=== PATIENT | male | born 1990 | race Caucasian/White ===

== ENCOUNTER 2024-08-17 06:31 | Outpatient (REF) | payer BC, SELFPAY ==
--- NOTE | ~2024-08-17 | US_ITS ---
CLINICAL HISTORY: Neoplasm of left kidney US Renal Comparison: None Findings: Right kidney normal size and echotexture, 10.4 cm in length. Left kidney normal size and echotexture, 11.4 cm length. 11 mm left interpolar/superior pole renal cyst. No collecting system dilatation of either kidney. Normal color Doppler. Urinary bladder is unremarkable. Prevoid volume 254 mL. Postvoid volume 18 mL. Bilateral ureteral jets are visualized. Mildly enlarged prostate. IMPRESSION: 1. Normal kidneys. 2. Mild prostate enlargement. 3. Left renal cyst. This document has been electronically signed by: Pineda Maddox MD on 08/17/2024 14:30:34
--- OUTSIDE RECORDS SUMMARY | 2024-08-17 06:35 | XMS_ITS | Clinical Summary ---
Author Organization [facility] Address [facility] [address], [address] [place] [address] Care Team Providers Care Financial Writer Name Role Phone Constanza Alarcon NP Primary Care Provider [phone] Source Comments [facility] (Labor and Delivery) documents do not appear in the Encounter Summary [facility] Allergies Active Allergy Reactions Criticality Noted Date Comments Aspirin Other (See Comments) 12/31/2016 ulcers Ibuprofen Other (See Comments) 12/31/2016 ulcers Infliximab Other (See Comments) 12/31/2016 Joints flared up Medications * Please verify current medications with patient. ADALIMUMAB (HUMIRA SUBCUTANEOUS) Active DICYCLOMINE HCL (DICYCLOMINE INTRAMUSCULA) Active IRON POLYSACCHARIDE COMPLEX (NU-IRON ORAL) Active Social History Tobacco Use Types Packs/Day Years Used Date Smoking Tobacco: Never Alcohol Use Standard Drinks/Week Comments Yes 5 (1 standard drink = 0.6 oz pur e alcohol) Sex and Gender Information Value Date Recorded Sex Assigned at Not on file Legal Sex Male 7:20 AM MDT Gender Identity Not on file Sexual Orientation Not on file Last Filed Vital Signs Vital Sign Reading Time Taken Comments Blood Pressure 110/56 12/31/2016 4:36 PM MDT Pulse 71 12/31/2016 4:36 PM MDT Temperature 37.1 ??C (98.8 ??F) 12/31/2016 4:21 PM MD T Respiratory Rate 17 12/31/2016 4:36 PM MDT Oxygen Saturation 95% 12/31/2016 4:36 PM MDT Inhaled Oxygen Concentration - - Weight 73.9 kg (163 lb) 12/31/2016 2:55 PM MDT Height 175.3 cm (5' 9 ) 12/31/2016 2:55 PM MDT Body Mass Index 24.07 12/31/2016 2:55 PM MDT Plan of Treatment Health Maintenance Due Date Last Done Comments HIV Screening 1989 Hepatitis C Screening 1989 Lipid Panel 1989 Hepatitis B Vaccine (1 of 3 - 19+ 3-dose series) 2008 Tetanus Diphtheria and Pertu ssis Vaccines (1 - Tdap) 2008 COVID-19 Vaccine (1 - 2023-2 5 season) 2024 Influenza Vaccine (#1) 2024 Zoster Vaccines (1 of 2) 2039 RSV Vaccines (1 - 1-dose 75+ series) 2064 HPV Vaccine Aged Out No longer eligi ble based on patient's age to complete this topic Hepatitis A Vaccine Aged Out No longe r eligible based on patient's age to complete this topic Hib Vaccine Aged Out No longer eligi ble based on patient's age to complete this topic IPV Vaccine Aged Out No longer eligi ble based on patient's age to complete this topic Meningococcal Vaccine (MCV4) Aged Out No longer eligible based on patient's age to complete this topic Pneumococcal Vaccine: Pediat rics (0 to 5 Years) and At-Risk Patients (6 to 64 Years) Aged Out No longer eligible b ased on patient's age to complete this topic Rotavirus Vaccine Aged Out No longer eligible based on patient's age to complete this topic Insurance [employer] Care Teams Financial Writer Relationship Specialty Start Date End Date Constanza Alarcon NP [address] [facility] [place] [address] [facility] - General 12/24/16
--- OUTSIDE RECORDS SUMMARY | 2024-08-17 06:35 | XMS_ITS ---
Author Name Auto Generated Organization [employer] Support Name Relationship Address Phone EDDA D[place] [address] [phone] USAMA PANDA Next of Kin Unknown [phone] [place] [address] [phone] TIM, [place] [address] [phone] USAMA PANDA Next of Kin Unknown Unavailable TIM, [place] [address] [phone] TIM, [place] [address] [phone] USAMA PANDA Next of Kin Unknown Unavailable TIMEDDA [place] [address] [phone] TIM, [place] [address] [phone] USAMA PANDA Next of Kin Unknown Unavailable TIM, [place] [address] [phone] TIM, [place] [address] [phone] UASMA PANDA Next of Kin Unknown Unavailable TIM, [place] [address] [phone] TIM, [place] [address] [phone] USAMA PANDA Next of Kin Unknown Unavailable TIM, [place] [address] [phone] TIM, [place] [address] [phone] USAMA PANDA Next of Kin Unknown Unavailable TIM, [place] [address] [phone] [place] [address] [phone] PANDAUSAMA REVELES Next of Kin Unknown Unavailable TIM, [place] [address] [phone] TIM, [place] [address] [phone] [place], [place] [address] [phone] TIM, [place] [address] [phone] [place], [place] [address] [phone] TIM, [place] [address] [phone] [place], [place] [address] [phone] [place], [place] [address] [phone] TIM, [place] [address] [phone] [place], [place] [address] [phone] TIM, [place] [address] [phone] [place], [place] [address] [phone] [place], [place] [address] [phone] TIM, [place] [address] [phone] Care Team Providers Care Web Services Professional Name Role Phone MD PATRICK MYERS Attending Physician Unavailree BLANK, OTILIO Spears Unavailable Unavailable JONNA PRATER Primary Care Physician Unav ailable MD PATRICK MYERS Unavailable Unavailable JONNA PRATER Primary Care Physician Unav ailMD PATRICK Dodson Unavailable Unavailable JONNA PRATER Primary Care Physician Unav ailable JOE CORDOBA Attending Physician Unavailable JONNA PRATER Primary Care Physician Unav ailable JOE CORDOBA Unavailable Unavailable JONNA PRATER Primary Care Physician Unav ailable JOE CORDOBA Unavailable Unavailable JONNA PRATER Primary Care Physician Unav ailable JOE CORDOBA Attending Physician Unavailable SELF Unavailable Unavailable JONNA PRATER Primary Care Physician Unav ailable JOE CORDOBA Unavailable Unavailable JONNA PRATER Primary Care Physician Unav ailable MD RAE CHAU Admitting Physician Unavailable MD RAE CHAU Attending Physician Unavailable OTILIO BLANK Unavailable Unavailable JONNA PRATER Primary Care Physician Unav ailable SOL ROMO Attending Physician Unavailable OTILIO BLANK Unavailable Unavailable JONNA PRATER Primary Care Physician Unav ailable OTILIO BLANK Unavailable Unavailable JONNA PRATER Primary Care Physician Unav ailable NADIRA GARCIAS Attending Physician Unavailable SELF Unavailable Unavailable JONNA PRATER Primary Care Physician Unav ailable JOE CORDOBA Attending Physician Unavailable SELF Unavailable Unavailable JONNA PRATER Primary Care Physician Unav ailable JOE CORDOBA Unavailable Unavailable JONNA PRATER Primary Care Physician Unav ailable TALIA GUERRERO Attending Physician Unavaila ble ASKED, DO NOT NOTIFY Primary Care Physician Unav ailable PROBLEMS DATE TYPE CONDITION / CODE ATTENDING STATUS [facility] 02/17/2024 Admitting Diagnosis Acute upper respiratory infection, unspecified / J06.9(ICD-10) TALIA GUERRERO Active [facility] 01/30/2024 Admitting Diagnosis Crohn's disease, unspecified, with other complication / K50.918(ICD-10) JOE CORDOBA Active [facility] 01/30/2024 Admitting Diagnosis Monoclonal gammopathy / D47.2(ICD-10) JOE CORDOBA Active [facility] 01/30/2024 Admitting Diagnosis Disorder of the autonomic nervous system, unspecified / G90.9(ICD-10) JOE CORDOBA Active [facility] 01/16/2024 Admitting Diagnosis Unspecified Eustachian tube disorder, left ear / H69.92(ICD-10) NADIRA GARCIAS Active [facility] 12/26/2023 Admitting Diagnosis Other specified disorders of kidney and ureter / N28.89(ICD-10) SOL ROMO Active [facility] 11/04/2023 Admitting Diagnosis Chronic kidney disease, unspecified / N18.9(ICD-10) MD RAE CHAU Active [facility] 11/04/2023 Admitting Diagnosis Chronic kidney disease, stage 2 (mild) / N18.2(ICD-10) MD RAE CHAU Active [facility] 11/03/2023 Admitting Diagnosis Diplopia / H53.2(ICD-10) CORDOBAJOE Active [facility] 11/03/2023 Admitting Diagnosis Sleep apnea, unspecified / G47.30(ICD-10) JOE CORDOBA Active [facility] 09/26/2023 Admitting Diagnosis Left upper quadrant abdominal swelling, mass and lump / R19.02(ICD-10) NA [facility] 09/17/2023 Admitting Diagnosis Lumbago with sciatica, left side / M54.42(ICD-10) JOE CORDOBA Active [facility] 09/17/2023 Admitting Diagnosis Lumbago with sciatica, right side / M54.41(ICD-10) JOE CORDOBA Active [facility] 09/17/2023 Admitting Diagnosis Familial dysautonomia (danny-day) / G90.1(ICD-10) JOE CORDOBA Active [facility] 09/10/2023 Admitting Diagnosis Other hydrocele / N43.2(ICD-10) MD PATRICK MYERS Active [facility] 09/10/2023 Admitting Diagnosis Right testicular pain / N50.811(ICD-10) MD PATRICK MYERS Active [facility] 09/10/2023 Admitting Diagnosis Left testicular pain / N50.812(ICD-10) MD PATRICK MYERS Active [facility] RESULTS PROGRESS NOTE Observed: 02/17/2024 6:50 PM Status: COMPLETED Source: [facility] [id number] TimJuan Pete [facility] 1990 M PROGRESS NOTE Observed: 02/17/2024 6:50 PM Status: COMPLETED Source: [facility] Assessment and Plan: Diagnosis ICD-10-CM Associated Orders 1. Upper respiratory tract infection, unspecified type J06.9 Patient seen today with couple days of URI symptoms. He is concern for sinusitis though history is more suggestive of a viral etiology. Vitals and physical exam are unremarkable. We discussed rest, duration, OTC meds like Mucinex and Sudafed to help with symptoms. Patient reports they are moving from [place] to [place] and will be driving there tomorrow and losing health insurance. I agreed to send a prescription for Augmentin as patient agreed to only take this if sinus pressure, congestion worsen, last beyond 7 days and are unaffected by OTC meds. He is discharged in good condition. Medications Placed This Encounter Medications amoxicillin-clavulanate (AUGMENTIN) 875-125 mg per tablet Subjective: Chief Complaint Patient presents with Sinus Problem Pt c/o headache, st due to post nasal drip, sinus pressure x 2 days. Tx none HPI Patient is a 33-year-old male in today with headache, sinus congestion and pressure along with sore throat with postnasal drip for the last couple days. Denies fevers, chills, body aches or lethargy. No cough, chest tightness or GI symptoms. Patient is accompanied by his partner who also has similar symptoms. They note likely catching this from a friend they went hiking with recently who is also sick. Objective: Vitals: 02/17/241917 Temp: 36.6 ?C (97.8 ?F) BP: 119/84 Pulse: 69 Heart Rate Source: Pulse Oximeter Resp: 16 02/17/2024 7:18 PM 01/30/2024 7:56 AM 01/16/2024 11:39 AM Last 3 Pulse Ox SpO2 96 percent 98 percent 98 percent SpO2- Pt at Rest or with Activity Rest Rest Rest No results found. Physical Exam Vitals reviewed. Constitutional: Appearance: Normal appearance. HENT: Head: Normocephalic and atraumatic. Right Ear: Tympanic membrane and ear canal normal. Left Ear: Tympanic membrane and ear canal normal. Mouth/Throat: Mouth: Mucous membranes are moist. Pharynx: Oropharynx is clear. Eyes: Extraocular Movements: Extraocular movements intact. Cardiovascular: Rate and Rhythm: Normal rate and regular rhythm. Pulmonary: Effort: Pulmonary effort is normal. Breath sounds: Normal breath sounds. Musculoskeletal: Cervical back: Neck supple. Lymphadenopathy: Cervical: No cervical adenopathy. Neurological: Mental Status: He is alert. Procedures Data: No results found for this visit on 02/17/24 (from the past 48 hour(s)). No results found. Reviewed: KVNG Dugan PROGRESS NOTE Observed: 02/17/2024 6:50 PM Status: COMPLETED Source: [facility] RESS NOTE Observed: 02/07/2024 11:13 AM Status: COMPLETED Source: [facility] [id number] Juan Dumont Pete eph 1990 M PROGRESS NOTE Observed: 02/07/2024 11:13 AM Status: COMPLETED Source: [facility] 02/06 Sent RR - Lialda PROGRESS NOTE Observed: 02/07/2024 11:13 AM Status: COMPLETED Source: [facility] RESS NOTE Observed: 02/07/2024 11:13 AM Status: COMPLETED Source: [facility] [id number] Juan Dumont Pete eph 1990 M PROGRESS NOTE Observed: 02/07/2024 11:13 AM Status: COMPLETED Source: [facility] 02/10-RR for Lialda Denied n ow filling at [facility] PROGRESS NOTE Observed: 02/07/2024 11:13 AM Status: COMPLETED Source: [facility] HROCYTE SEDIMENTATION RATE Collected: 01/30/2024 8:41 AM Status: F Source: [facility] TYPE CODE TESTS RESULT OUT OF RANGE REFERENCE UNITS LAB [id number] ERYTHROCYTE SEDIMENTATION RATE 4 0-10 mm/hr Result Comment: Ordering Pro vider: JOE CORDOBA C REACTIVE PROTEIN Collected: 8:41 AM Status: F Source: [facility] TYPE CODE TESTS RESULT OUT OF RANGE REFERENCE UNITS LAB [id number] CRP <5.0 <10.0 mg/L Result Comment: Ordering Pro vider: JOE CORDOBA PROTEIN TOTAL SPEP Collected: 01/30/2024 8:41 AM Sta tus: F Source: [facility] TYPE CODE TESTS RESULT OUT OF RANGE REFERENCE UNITS LAB [id number] SPEP PROTEIN TOTAL SERUM 7.1 6.4-8.9 g/dL Result Comment: Ordering Pro vider: JOE CORDOBA Performed By: #### [id number] # ### [place] [address] [place] [address] CLIA# [id number] [id number] COMPLEMENT Collected: 01/30/2024 8:41 AM Status: F Source: [facility] TYPE CODE TESTS RESULT OUT OF RANGE REFERENCE UNITS LAB [id number] C3 COMPLEMENT 112 87-200 mg/dL Result Comment: Ordering Pro vider: JOE CORDOBA Performed By: #### [id number], L [id number] #### [place] [address] CLIA# [id number] [id number] COMPLEMENT Collected: 01/30/2024 8:41 AM Status: F Source: [facility] TYPE CODE TESTS RESULT OUT OF RANGE REFERENCE UNITS LAB [id number] C4 COMPLEMENT 20.0 19.0-52.0 mg/dL Result Comment: Ordering Pro vider: JOE CORDOBA Performed By: #### [id number], L [id number] #### [place] [address] CLIA# [id number] KAPPA/LAMBDA FREE LIGHT SCOTT NS WITH RATIO, SERUM Collected: 01/30/2024 8:41 AM Status: F Source: [facility] TYPE CODE TESTS RESULT OUT OF RANGE REFERENCE UNITS LAB [id number] KAPPA FREE LIGHT CHAINS 1.89 0.33-1.94 mg/dL LAB [id number] LAMBDA FREE LIGHT CHAINS 1.65 0.57-2.63 mg/dL LAB [id number] KAPPA/LAMBDA FLC RATIO 1.15 0.26-1.65 LAB [id number] KAPPA-LAMBDA FLC DIFFERENCE 0.24 mg/dL Result Comment: Testing perf ormed with The Binding Site [employer] assay. Ordering Provider: JOE CORDOBA Performed By: #### [id number], [id number], [id number] #### [place] [address] CLIA# [id number] SPEP W REFLEX NIKKI PERFORM Collected: 01/30/2024 8:41 AM Status: F Source: [facility] TYPE CODE TESTS RESULT OUT OF RANGE REFERENCE UNITS LAB [id number] SPEP MONOCLONAL PROTEIN QUAL None Detected None Detected LAB [id number] SPEP MONOCLONAL PROTEIN LAB [id number] SPEP PATTERN INTERPRETATION See Comment Result Comment: Nonspecific gammaglobulin asymmetry was noted, but a definite M-protein wasn't identified by the immunofixation. The increased gamma fraction suggests chronic inflammation. Rarely, that can obscure a paraprotein. Reevaluation in 6-12 months could be considered if clinical suspicion persists. The kappa/lambda free light chain ratio in a recent serum sample was within the reference interval. Interpreted by Mackenzie Ford D.O. (ext. [phone]). LAB [id number] SPEP ALBUMIN FRACTION C 3.9 3.5-4.8 g/dL LAB [id number] SPEP ALPHA 1 PROTEIN FRACTION C 0.20 0.14-0.34 g/dL LAB [id number] SPEP ALPHA 2 PROTEIN FRACTION C 0.7 0.5-1.0 g/dL LAB [id number] SPEP BETA PROTEI N FRACTION C 0.9 0.8-1.5 g/dL LAB [id number] SPEP GAMMA PROTEIN FRACTION C 1.5 High 0.4-1.4 g/dL Result Comment: Ordering Pro vider: JOE CORDOBA Performed By: #### [id number], [id number], [id number] #### [address] CLIA# [id number] LAB USE ONLY NIKKI SERUM Collected: 01/30/2024 8:41 AM Status: F Source: [facility] REPOSITORY TYPE CODE TESTS RESULT OUT OF RANGE REFERENCE UNITS LAB [id number] S NIKKI IGG MONOCLONAL None Detected None Detected LAB [id number] S NIKKI IGA MONOCLONAL None Detected None Detected LAB [id number] S NIKKI IGM MONOCLONAL None Detected None Detected LAB [id number] S NIKKI KAPPA MONOCLONAL None Detected None Detected LAB [id number] S NIKKI LAMBDA MONOCLONAL None Detected None Detected LAB [id number] S NIKKI INTERPRETATION See Comment Result Comment: An M-protein wasn't identified by NIKKI, but background proteins that may obscure a faint monoclonal protein are noted. Refer to the sample's concurrent protein electrophoresis interpretation for complete details. Interpreted by Mackenzie Ford D.O. (ext. [phone]). Ordering Provider: JOE CORDOBA Performed By: #### [id number], [id number], [id number] #### [place], [place] [address] [facility] CLIA# [id number] PROGRESS NOTE Observed: 01/30/2024 8:00 AM Status: COMPLETED Source: [facility] REPOSITORY [id number] Juan Dumont [facility] 1990 M PROGRESS NOTE Observed: 01/30/2024 8:00 AM Status: COMPLETED Source: [facility] ASSESSMENT AND PLAN: ICD-10-CM 1. Crohn's disease with other complication, unspecified gastrointestinal tract location (HC CODE) K50.918 Erythrocyte Sedimentation Rate C-Reactive Protein C3 Complement C4 Complement 2. MGUS (monoclonal gammopathy of unknown significance) D47.2 Protein Serum Electrophoresis w/Reflex NIKKI [place]/Lambda Free Light Chains with Ratio, Serum 3. Autonomic dysfunction G90.9 Juan Dumont is a 33 y.o. man presents with autonomic dysfunction and double vision after viral infection in 2020, fluctuating leg paresthesia with abdominal discomfort. Exam showed skin discoloration in hands and feet, and was otherwise unremarkable. Right eye discomfort when looking up. Could be related to underlying autonomic dysfunction, contributing to migrainous phenomena causing right eye heaviness. Primary eye issues such as dry eye or uveitis could be other consideration. No clear weakness with upward gaze at today's visit. Antibodies for myasthenia gravis were unremarkable. No neck pain make dissection unlikely. Reassuringly symptoms improved over time. Dysautonomia in 2020. Regarding his symptoms in 2020, mycoplasma is known to cause post-infectious (immune-mediated) issues: Skin biopsy did confirm small fiber neuropathy, making small autonomic neuropathy the most likely cause for many of his symptoms. It remains possible that he might had small fiber neuropathy for a while, but it did not become symptomatic until he had systemic illness, contributing to hypoxemia and poor sleep. The elevated early Sjogren antibodies, abnormal SPEP as well as AChR ganglionic antibodies, makes immune mediated process initially a possibility contributing to the autonomic neuropathy. Extensive malignancy work-up (CT chest/abd/pelvis x2, US testicular) ruled out paraneoplastic process contributing to his symptoms MRI brain and C-spine have ruled out cervical lesion or intracranial lesions contributing to his symptoms. EMG has ruled out large fiber neuropathy. Skin discoloration in the hands and feet would also be concerning for underlying generalized dysautonomia. Fluctuates depending on the day. B12 deficiency could be another concern given previously low titer. S/p supplementation. Copper level mikael previously. Reassuringly, his symptoms in general has been stable over time, argue against progressive autonomic neuropathy. Normalization of AChR Ganglionic antibody also supports this concern. He does have fluctuating light chain level depending on clinic visit. Significance is unclear, but does need to be followed over time. Tinnitus with episodic double vision and headache. LP did not show elevated intracranial pressure, and MRI scan did not show any finding that would be consistent with elevated intracranial pressure. MRV ruled out venous sinus thrombosis. Sleep study did confirm sleep apnea, which could be contributing to tinnitus as well as headache. he has not followed up with providers regarding this for a while. Joint swelling, abdominal/pelvic discomfort and lower extremity paresthesia. Could be associated with other autoimmune disorder. In general stable, but continued to fluctuate depending on the day. We discussed the following during today's telehealth visit: -likely cause of his symptoms were again discussed. -will recheck inflammatory markers and SPEP at today's visit. -did encourage patient to follow up with eye provider regarding the double vision. -encouraged patient to consider treatment of sleep apnea going forward, given it would be causing some of his symptoms. -Follow up as needed, as he is moving to [place]. He can contact us on my health connection if questions or issues arise . HISTORY: Chief Compliant: Juan Dumont is a 30 y.o. man who presents to neurology telehealth visit for evaluation of paresthesia, tinnitus, positional lightheadedness, headache, double vision. Last clinic visit was 11/03/2023. Update since last clinic visit: Double vision and eye discomfort: improved over time. Only noticed it when he is very fatigued. He is yet to be seen by an eye doctor. Paresthesia, diffuse joint pain and heart rate/blood pressure variation, tinnitus: symptoms improved by minimize triggers. Sleep apnea treatment: He has not followed up with other provider regarding this. He did have kidney dysfunction, which workup was negative. 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 He does recall when he had initial symptoms, he was not sleeping well. Summary from prior clinic visits: Doing well before 06/2020. Had upper respiratory tract symptoms during trip to see family. since then constellation of symptoms He has developed severe hypotension after eating. He has not passed out from these lightheadedness. He has developed severe joint pain, as well as significant paresthesia in his hands and feet. Worsens with antibiotics use. He has developed severe tinnitus that is nearly continuous and out of both ears, with head pressure sensation. Low grade temp with chills. Fatigue, brain fog, double vision when tired, vertiginous sensation, mild postural tremor. He otherwise reports no weakness, no change of balance, no dry eyes or dry mouth, no severe urinary and bowel dysfunction. Repeat Lyme FRANCK was negative. Mycoplasma IgM did return positive subsequently, and he received 10 days of doxycycline and 7 days of amoxicillin. Repeat Mycoplasma testing in October was negative Extensive serum testing unrevealing, except elevated early Sjogren antibody titer, AChR Ganglionic antibody mildly elevated, positive skin punch biopsy. Evaluation at neuro ID clinic unremarkable. EMG unremarkable. Malignancy screening with CT chest/abd/pelvis x2 and testicular US are all unremarkable. COVID-19 transiently worsened his symptoms. History of Crohn's disease. He was on Humira since 2011. He was recently taken off Humira and started on mesalamine before 2020. Symptom stabilize over time. Does have intermittent joint swelling. Also had more recent testicular pain, abdominal dull ache, as well as paresthesia down the legs. CURRENT MEDICATIONS: Current Outpatient Medications Medication Sig cyanocobalamin 1,[address] 1 tablet under the tongue daily for B12 deficiency. dicyclomine (BENTYL) 20 mg tablet Take 1 tablet by mouth 2 times daily for Irritable Bowel Syndrome. iron polysaccharide complex (FERREX 150 PO) LIALDA 1.2 gram EC tablet Take 4 tablets by mouth daily for Crohn's disease. No current facility-administered medications for this visit. ALLERGIES: Aspirin, Ibuprofen, Infliximab, and Azithromycin EXAM: Vital Signs: Visit Vitals BP 116/78 (BP Location: , Patient Position: Sitting) Pulse 60 Temp 36.6 ?C (97.9 ?F) (Temporal) Resp 16 Ht 1.753 m (5' 9 ) Wt 79.8 kg (176 lb) SpO2 98 percent BMI 25.99 kg/m? General Examination General: No apparent distress. Respiratory: Normal respiratory effort. Skin: No rashes noted Extremities: Foot is cool to touch. Discoloration in the fingers and toes. Normal radial pulses. Neurological Examination MENTAL STATUS: Alert, attentive and oriented to person, place and time; ability to follow commands intact. LANGUAGE: Language is coherent and fluent without aphasia. CRANIAL NERVES: II: Visual [place] full to confrontation. Pupils equal, round, reactive to light. III, IV, : Extraocular eye movements full; no nystagmus. no ptosis and no weakness noted, with persisted upward gaze, V: Facial sensation: Normal light touch in all three divisions VII: Facial movements: eyelid closure, puffing the cheeks and smile normal bilaterally VIII: Hearing is intact to normal conversation. IX, X: Soft palate elevation normal in midline. No dysarthria. XI: Normal sternocleidomastoid and trapezius strength and bulk XII: Tongue without atrophy or fasciculations; tongue movement normal MOTOR STRENGTH (MRC 0-5): Normal bulk and tone in the bilateral upper and lower extremities. No cramps, fasciculations or contractures. RIGHT LEFT Neck flexion 5 Neck extension 5 UPPER EXTREMITY Shoulder ABD 5 5 Elbow extension 5 5 Elbow flexion 5 5 Wrist extension 5 5 Wrist flexion 5 5 Finger ABD 5 5 Finger extension 5 5 Finger flexion 5 5 Thumb ABD 5 5 LOWER EXTREMITY Hip flexion 5 5 Knee extension 5 5 Knee flexion 5 5 Ankle Dorsiflexion 5 5 Ankle Plantarflexion 5 5 Toe Flexion 5 5 Toe Extension 5 5 REFLEXES: RIGHT LEFT Biceps +2 +2 Triceps +2 +2 Brachioradialis +2 +2 Patellar +2 brisk +2 brisk Achilles +2 +2 Plantar response downgoing downgoing Santos's absent absent SENSORY: Pinprick/temperature: intact Vibration: intact Light touch: intact Romberg: intact COORDINATION: Finger to nose testing is accurate without dysmetria. No tremor or abnormal movements noted. GAIT: Casual gait is normal. Able to walk on toes and heels. Normal tandem walk. DATA: Laboratory, radiographic and medical studies were independently reviewed and pertinent for: 05/08/2023: Vitamin D 49; B12: >1000; CRP < 5; BMP: 140/4.7/105/22/28/1.37/87; AST: 32; ALT: 37; CBC: 9/17.3/50/361; 06/19/2022: SPEP unremarkable. Ferritin 258; iron panel negative; BMP: 138/4/107/22/24/90; paraneoplastic panel (not including AChR ganglionic antibody titer) negative; CRP <5; ESR 2; CCP < 20; RF < 10; [place] light chain 2.05 (normal < 1.94); Copper level normal; 02/08/2022: Vitamin B12: 286; Vitamin D 45; CRP 9.2; BMP: 141/3.6/105/27/28/1.04/80; AST: 16; ALT: 18; CBC: 10.3/16.7/49.1/306; 05/24/2021: early sjogren panel negative; [place] light chain 2.12, AChR gnaglionic antibody 0.05; 04/24/2021: CSF testing: OP 17; lyme PCR, oligoclonal band negative; protein 32; Glucose 65; Nucleated cell 2; RBC 0; VDRL non-reactive; 04/24/2021: TS-HDS and FGFR3 antibodies negative. ESR 2; CRP: 1.9; paraneoplastic antibody panel: AChR ganglionic neuronal antibody 0.04; 02/27/2021: Homocysteine, vitamin E, MMA, tick fever antibody, thyroid antibody, HIV, B6, B12 341, A1C 5.1; kelch-like protein 11 antibody negative; [place]: lambda ratio: [place] slightly elevated at 2.1; UPEP negative; early Sjogren antibody panel SP-1 IgG elevated at 29 (normal < 20); 12/25/2020: heavy metal negative; unremarkable SPEP, ANCA. 12/19/2020: Antihistone antibody negative; CRP 2.6; 11/10/2020: C3, C4 (slightly reduced at 11), Folate 17.6; B12: 508; mycoplasma IgG and IgM elevated; 07/27/2020: ARIANNA unremarkable. EMG/NCS 01/19/2021: This is a normal study. Specifically, there is no electrodiagnostic evidence for a large fiber polyneuropathy. Skin biopsy: positive for small fiber neuropathy from one site; Imaging studies were independently viewed and pertinent for: CT abdomen/pelvis with contrast: 09/26/2023: 1. No acute abnormality in the abdomen or pelvis. Density seen on prior x-ray appears to correlate to the region of the stomach likely representing ingested material. 2. Partially imaged hydroceles. X-ray L-spine: 09/18/2023: 1. No fracture or spondylolisthesis in the lumbar spine. 2. Density in the left upper quadrant was not noted on the recent CT scan. CT chest/abd/pelvis 08/14/2021: normal; MRV brain w AND w/o contrast: 05/10/2021: Normal MR venogram of the head; no evidence of dural venous sinus thrombosis. 01/05/2021: MRI C-spine w AND w/o contrast: No cord lesion, significant degeneration or abnormal enhancement. 02/14/2021: Ultrasound testicular: 1. No intratesticular mass lesion. 2. Moderate-sized right-sided hydrocele. CT chest/abd/pelvis with contrast 02/27/2021: 1. No lymphadenopathy or other evidence for malignancy. 2. Indeterminate density exophytic lesion extending off of the left kidney measuring up to 1.1 cm, likely representing a hemorrhagic/proteinaceous cyst. This lesion can likely be further characterized with ultrasound given location. Renal ultrasound 03/01/2021: 1. The left kidney lesion noted on the previous CT scan has low density in the CT scan are today's ultrasound it is anechoic. It is small in size and through-transmission/posterior acoustical enhancement are not optimally displayed, but the finding likely represents a simple cortical renal cyst. 2. Normal left kidney and normal bladder. I spent total of 40 minutes in reviewing record, preparing to see patient, independently interpreting results, counseling, discussion of treatment options, coordination care, documentation. Details outlined in assessment and plan. Thank you so much for this consultation and for allowing us to be involved in the care of Juan Dumont. If there are any further questions or concerns, please contact the [facility] at [phone] for assistance. Joe Cordoba Copy Coordinator of Neurology Pager: [phone] 01/30/2024 PROGRESS NOTE Observed: 01/30/2024 8:00 AM Status: COMPLETED Source: [facility] RESS NOTE Observed: 01/16/2024 11:40 AM Status: COMPLETED Source: [facility] [id number] Juan Dumont [facility] 1990 M PROGRESS NOTE Observed: 01/16/2024 11:40 AM Status: COMPLETED Source: [facility] Clinical Impression Diagnosis None Urgent Care Course/Discussion/Disposition No aom, aoe, cerumen impaction. Eustachian dysfunction. You have eustachian dysfunction caused by swelling of the eustachian tube due to allergies. There is no infection or ear wax. Pepcid (famotidine) as directed. Cetirizine once daily at bedtime. For ear and nasal congestion: Afrin nasal spray decongestant, twice daily for maximum 3 days, then must take 2-3 days off before resuming the Afrin to avoid nasal congestion. Pseudoephedrine as directed. For runny nose: Chlorpheniramine (at night, will make you drowsy). Cetirizine 10 mg at bedtime. Flonase/fluticasone as directed. Thank you for trusting me with your care. No results found for this visit on 01/16/24. No orders to display Discharge Orders (From admission, onward) None History Chief Complaint Patient presents with Ear Problem Pt is a 33 yo male with uri several weeks ago, sinusitis. When he was flying back about 1 week ago, he was having left ear plugging, pressed on his left ear, and wondered if he pushed wax into the canal. [place], had ear popping and clicking with altitude change. 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 Runs high (135/80) but is very low recently (105/60) Kidney cancer, primary, with metastasis from kidney to other site (HC CODE) October 2023 Neuromuscular disorder (HC CODE) June 2020 Neuropathy Confirmed in Feb 2021 small fiber neuropathy Ulcer since 1999 Crohns Prior to Admission medications Medication Sig Start Date End Date Taking? Authorizing Provider cholecalciferol, vitamin D3, (VITAMIN D3) 1,000 unit tablet Take 1 tablet by mouth. Faheem Ge MD cyanocobalamin 1,[address] 1 tablet under the tongue daily for B12 deficiency. 02/08/22 Gilson Sandy MD dicyclomine (BENTYL) 20 mg tablet Take 1 tablet by mouth 2 times daily for Irritable Bowel Syndrome. 11/19/23 Gilson Sandy MD efinaconazole (JUBLIA) 10 percent Roscoe Faheem Ge MD iron polysaccharide complex (FERREX 150 PO) Faheem Ge MD LIALDA 1.2 gram EC tablet Take 4 tablets by mouth daily for Crohn's disease. 11/19/23 Gilson Sandy MD MELATONIN PO Take by mouth as needed. Faheem Ge MD TACROlimus (PROTOPIC) 0.1 percent ointment APPLY TWICE A DAY TO AFFECTED AREAS FOR UP TO 8 WEEKS. Faheem Ge MD Allergies Allergen Reactions Aspirin BLEEDING and Other Reaction Other reaction(s): Adverse reaction, Other (See Comments) Stomach pain ulcers Due to crohn's ulcers Due to crohn's Ibuprofen BLEEDING and Other Reaction Other reaction(s): Adverse reaction, GI bleeding, Other (see comments), Other (See Comments) ulcers Stomach pain Due to crohn's ulcers Due to crohn's Stomach pain Infliximab JOINT SWELLING, Other Reaction, Shortness Of Breath and Swelling Other reaction(s): Adverse reaction, Other (see comments) Joints flared up Flare up of joints/ was hospitalized for 1 week as a result Joints swelled up. Hospitalized Joints flared up Joints swelled up. Hospitalized Flare up of joints/ was hospitalized for 1 week as a result Azithromycin TINGLING SENSATION Past Surgical History: Procedure Laterality Date GUM SURGERY 2017 IR RENAL BIOPSY 11/04/2023 IR RENAL BIOPSY 11/04/2023 [facility] [place] PREVIOUS SURGERIES 2007; 2016; routine wisdom teeth removed; gum surgery; routine colonoscopies WISDOM TOOTH EXTRACTION 2007 Social History Tobacco Use Smoking status: Never Smokeless tobacco: Never Vaping Use Vaping status: Never Used Substance Use Topics Alcohol use: Yes Alcohol/week: 4.0 standard drinks of alcohol Types: 4 Standard drinks or equivalent per week 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 rate 16, weight 79.4 kg (175 lb), SpO2 98 percent . Physical Exam Vitals and nursing note reviewed. Constitutional: Comments: Gen: NAD, pleasant, conversant, nontoxic Heent: Perrl, eomi, op clear but with posterior OP cobblestoning, no plaques/exudates, sp symm, uvula midline, airway patent, tms clear Neck: Supple, no stridor Lad: No cervical lad Cv: Regular pulse, no tachycardia Pulm: No tachypnea, rtxn, nasal flaring, cyanosis, resp distress, cough, inability to speak complete sentences. Ext: Pulses 2+, brisk cr Skin: warm and dry Neuro: A AND Ox3, normal gait Objective data reviewed: Epic old records reviewed Procedures Nadira Crisostomo 12:35 PM PROGRESS NOTE Observed: 01/16/2024 11:40 AM Status: COMPLETED Source: [facility] [employer] [facility] RESS NOTE Observed: 12/26/2023 11:30 AM Status: COMPLETED Source: [facility] [id number] Juan Dumont [facility] 1990 M PROGRESS NOTE Observed: 12/26/2023 11:30 AM Status: COMPLETED Source: [facility] IMPRESSION AND RECOMMENDATIO NS: Impression 1. 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 Patient's HPI, medical and surgical history, prior treatments, past and current imaging, past and current labs, current pertinent ROS and PE findings were presented and reviewed by above mentioned team of specialists. Today patient met with Dr. Sol Romo Here is the summary of our impression and recommendations: I met with the patient and his . We provided reassurance that this is largely a benign histologic finding. I recommended the patient have a repeat MRI in 4 to 6 months. The patient is moving to [place] and I recommended follow-up with one of the academic urologist there. I personally spent a total of 65 minutes today preparing to see the patient, on direct patient care, communicating with another provider, independently interpreting results, documenting, and care coordination. My assessment is is detailed above. 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 02/27/21 CT CAP: No lymphadenopathy or other evidence for malignancy. Indeterminate density exophytic lesion extending off of the left kidney measuring up to 1.1 cm, likely representing a hemorrhagic/proteinaceous cyst. This lesion can likely be further characterized with ultrasound given location. 03/01/21 US Renal: The left kidney lesion noted on the previous CT scan has low density in the CT scan are today's ultrasound it is anechoic. It is small in size and through-transmission/posterior acoustical enhancement are not optimally displayed, but the finding likely represents a simple cortical renal cyst. Normal right kidney and normal bladder. 08/14/21 CT CAP: Normal exam. No CT evidence of malignancy in the chest, abdomen or pelvis. 06/19/23 US Renal: Unremarkable sonographic appearance of the kidneys. 09/26/23 CT AP: No acute abnormality in the abdomen or pelvis. Density seen on prior x-ray appears to correlate to the region of the stomach likely representing ingested material. Partially imaged hydroceles. 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 Normal glomerular morphology without evidence of glomerulonephritis INTERVAL HISTORY scrotal pain - hydrocele. No urinary complaints PAST MEDICAL HISTORY CKD stage 2 - Cr. 1.0 -1.3 Small fiber autonomic neuropathy, autonomic dysfunction and double vision after viral infection in 2020, fluctuating leg paresthesia with abdominal discomfort, Crohns, hydrocele, h/o mycoplasma pneumonia, central ALMA, crohn's - takes lialda PAST SURGICAL HISTORY Oral surgeries FAMILY HISTORY Maternal grandmother colorectal cancer, maternal uncle melanoma, Father PKD SOCIAL HISTORY Never smoker, 4 drinks per week, some rec MJ CURRENT MEDICATIONS: Current Outpatient Medications Medication Sig * cholecalciferol, vitamin D3, (VITAMIN D3) 1,000 unit tablet Take 1 tablet by mouth. * cyanocobalamin 1,[address] 1 tablet under the tongue daily for B12 deficiency. * dicyclomine (BENTYL) 20 mg tablet Take 1 tablet by mouth 2 times daily for Irritable Bowel Syndrome. * efinaconazole (JUBLIA) 10 percent Roscoe * iron polysaccharide complex (FERREX 150 PO) * LIALDA 1.2 gram EC tablet Take 4 tablets by mouth daily for Crohn's disease. * MELATONIN PO Take by mouth as needed. * TACROlimus (PROTOPIC) 0.1 percent ointment APPLY TWICE A DAY TO AFFECTED AREAS FOR UP TO 8 WEEKS. No current facility-administered medications for this visit. ALLERGIES: Aspirin, Ibuprofen, Infliximab, and Azithromycin Review of Systems Constitutional: Negative. Negative for chills, diaphoresis and fever. HENT: Negative. Negative for facial swelling, neck pain, neck stiffness, ear discharge, nosebleeds, congestion, rhinorrhea, postnasal drip, sneezing, drooling and mouth sores. Eyes: Negative. Negative for discharge and itching. Respiratory: Negative for apnea, choking and chest tightness. Cardiovascular: Negative. Negative for chest pain. Gastrointestinal: Negative. Negative for anal bleeding, blood in stool, constipation, diarrhea and nausea. Musculoskeletal: Negative. Negative for arthralgias and back pain. Skin: Negative for color change, pallor, rash and wound. Neurological: Negative for dizziness, tremors, seizures, syncope, facial asymmetry, speech difficulty, weakness, light-headedness, numbness and headaches. Hematological: Negative for adenopathy. Psychiatric/Behavioral: Negative for agitation, behavioral problems, confusion, decreased concentration, dysphoric mood and hallucinations. PHYSICAL EXAM: Physical Exam Constitutional: Appearance: Normal appearance. HENT: Head: Normocephalic. Cardiovascular: Pulses: Normal pulses. Pulmonary: Effort: Pulmonary effort is normal. Neurological: Mental Status: He is alert. There were no vitals filed for this visit. DATA: N/A TIME/COMMUNICATION: Sol Romo MD PROGRESS NOTE Observed: 12/26/2023 11:30 AM Status: COMPLETED Source: [facility] RESS NOTE Observed: 12/26/2023 11:30 AM Status: COMPLETED Source: [facility] [id number] Juan Dumont [facility] 1990 M PROGRESS NOTE Observed: 12/26/2023 11:30 AM Status: COMPLETED Source: [facility] Urologic Oncology [facility] IMPRESSION AND RECOMMENDATIONS: 1. Renal mass Case discussed in the Urologic Oncology Multidisciplinary conference which was reviewed by multiple team members including surgeons, medical oncologists, radiation oncologists, radiologists, pathologists, supportive oncology staff and study coordinators. Patient's HPI, medical and surgical history, prior treatments, past and current imaging, past and current labs, current pertinent ROS and PE findings were presented and reviewed by above mentioned team of specialists. Today patient met with Dr. Romo. Here is the summary of our impression and recommendations: Dr. Romo provided reassurance that this is largely a benign histologic finding. Recommend the patient have a repeat MRI in 4 to 6 months. The patient is moving to [place] and Dr. Romo recommended follow-up with one of the academic urologist there. 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 02/27/21 CT CAP: No lymphadenopathy or other evidence for malignancy. Indeterminate density exophytic lesion extending off of the left kidney measuring up to 1.1 cm, likely representing a hemorrhagic/proteinaceous cyst. This lesion can likely be further characterized with ultrasound given location. 03/01/21 US Renal: The left kidney lesion noted on the previous CT scan has low density in the CT scan are today's ultrasound it is anechoic. It is small in size and through-transmission/posterior acoustical enhancement are not optimally displayed, but the finding likely represents a simple cortical renal cyst. Normal right kidney and normal bladder. 08/14/21 CT CAP: Normal exam. No CT evidence of malignancy in the chest, abdomen or pelvis. 06/19/23 US Renal: Unremarkable sonographic appearance of the kidneys. 09/26/23 CT AP: No acute abnormality in the abdomen or pelvis. Density seen on prior x-ray appears to correlate to the region of the stomach likely representing ingested material. Partially imaged hydroceles. 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 Normal glomerular morphology without evidence of glomerulonephritis INTERVAL HISTORY scrotal pain - hydrocele. No urinary complaints PAST MEDICAL HISTORY CKD stage 2 - Cr. 1.0 -1.3 Small fiber autonomic neuropathy, autonomic dysfunction and double vision after viral infection in 2020, fluctuating leg paresthesia with abdominal discomfort, Crohns, hydrocele, h/o mycoplasma pneumonia, central ALMA, crohn's - takes lialda PAST SURGICAL HISTORY Oral surgeries FAMILY HISTORY Maternal grandmother colorectal cancer, maternal uncle melanoma, Father PKD SOCIAL HISTORY Never smoker, 4 drinks per week, some rec MJ CURRENT MEDICATIONS: Current Outpatient Medications Medication Sig cholecalciferol, vitamin D3, (VITAMIN D3) 1,000 unit tablet Take 1 tablet by mouth. cyanocobalamin 1,[address] 1 tablet under the tongue daily for B12 deficiency. dicyclomine (BENTYL) 20 mg tablet Take 1 tablet by mouth 2 times daily for Irritable Bowel Syndrome. efinaconazole (JUBLIA) 10 percent Roscoe iron polysaccharide complex (FERREX 150 PO) LIALDA 1.2 gram EC tablet Take 4 tablets by mouth daily for Crohn's disease. MELATONIN PO Take by mouth as needed. (Patient not taking: Reported on 11/04/2023) TACROlimus (PROTOPIC) 0.1 percent ointment APPLY TWICE A DAY TO AFFECTED AREAS FOR UP TO 8 WEEKS. No current facility-administered medications for this visit. ALLERGIES: Aspirin, Ibuprofen, Infliximab, and Azithromycin Review of Systems PHYSICAL EXAM: Physical Exam Vitals: 12/26/23 1125 Temp: 37.1 ?C (98.8 ?F) BP: 126/59 Pulse: 70 Heart Rate Source: Monitor Resp: 16 DATA: N/A Results for orders placed or performed during the hospital encounter of 11/04/23 CBC with Auto Differential Result Value Ref Range White Blood Cell Count 5.9 4.0 - 11.1 10*9/L Red Blood Cell Count 5.09 4.76 - 6.09 10*12/L Hemoglobin 16.4 14.3 - 18.1 g/dL Hematocrit 47.9 39.2 - 50.2 percent Mean Corpuscular Volume 94.1 80.0 - 100.0 fL Mean Corpuscular Hemoglobin 32.2 27.5 - 35.1 pg Mean Corpuscular Hemoglobin Concentration 34.2 32.0 - 36.0 g/dL Platelet Count 310 150 - 400 10*9/L Red Cell Distribution Width CV 12.2 11.7 - 14.2 percent NRBC Percent 0.0 <=0.0 percent NRBC Absolute 0.00 0 - 0.1 10*9/L Neutrophil Percent 46.7 percent Lymphocyte Percent 41.2 percent Monocytes Percent 9.4 percent Eosinophils Percent 2.0 percent Basophils Percent 0.5 percent Immature Granulocytes Percent 0.2 percent Neutrophils Absolute 2.8 1.8 - 6.6 10*9/L Lymphocyte Absolute 2.4 1.0 - 4.8 10*9/L Monocytes Absolute 0.6 0.2 - 0.9 10*9/L Eosinophils Absolute 0.1 0.0 - 0.4 10*9/L Basophils Absolute 0.0 0.0 - 0.2 10*9/L Immature Granulocytes Absolute 0.0 0.0 - 0.05 10*9/L TIME/COMMUNICATION: N/A Flower Escamilla NP PROGRESS NOTE Observed: 12/26/2023 11:30 AM Status: COMPLETED Source: [facility] RESS NOTE Observed: 11/19/2023 10:09 AM Status: COMPLETED Source: [facility] [id number] Juan Dumont [facility] 1990 M PROGRESS NOTE Observed: 11/19/2023 10:09 AM Status: COMPLETED Source: [facility] A renewal for LIALDA 1.2 gra m EC tablet has been reviewed for a prior authorization. Benefits Investigation Details Test claim indicates (include screenshot): Pays with a copay of $0/90DS Previous PA approval found: No Other info found from referral records/encounters: None Current/past orders indicate: [facility] LDD restrictions: No Notified patient: N/A- Routing to Outreach Outcome/Next Steps: PAID CLAIM, ROUTING TO OUTREACH. PROGRESS NOTE Observed: 11/19/2023 10:09 AM Status: COMPLETED Source: [facility] RESS NOTE Observed: 11/19/2023 10:09 AM Status: COMPLETED Source: [facility] [id number] Juan Dumont [facility] 1990 M PROGRESS NOTE Observed: 11/19/2023 10:09 AM Status: COMPLETED Source: [facility] Patient would like to enroll releasing prescription to [facility] PROGRESS NOTE Observed: 11/19/2023 10:09 AM Status: COMPLETED Source: 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 Modern Pathol 202;35:344-51). The tumor is considered benign and its presence in this biopsy is incidental. Review of this biopsy was done in consultation with Drs. Geoffrey Luis and Qiana Rubio ([facility] [place]) who concur with the diagnosis. Clinical History [id number]. 33 y.o. male with history of borderline elevation of serum creatinine between 1.37 (05/08/23) and most recently at 1.23 mg/ dL (06/11/23). Cystatin = 1.04 mg/L (reference 0.53-1.01 mg/ mL) and GFR = 82.24 ml/min/1.73/m2 (reference >= 60 ml/ min). Unclear etiology Microscopic Description Light microscopy: Multiple sections are alternately stained with H&E, trichrome, PAS and Ryan silver Over 50 glomeruli are present on two cores. . On PAS and H&E stains, the glomeruli are normocellular with normal amounts of mesangial matrix. On silver stains the basement membranes are thin and delicate without spikes or reduplications. The tubules lie [id number] without significant interstitial fibrosis on trichrome stains. The tubules and vessels are within normal limits. However, within the cortex there is a 2.7 mm focus of an atypical neoplasm composed of cells with abundant eosinophilic to vacuolated cytoplasm and large round to ovoid nuclei containing prominent nucleoli. The cells are arranged in clusters and tubular structures within a pale stroma and well circumscribed without a capsule. The tumor cells display the following profile by immunohistochemistry/ special stains: CD117 positive CD56 positive CK7 scattered positive cells INI1 positive (intact) FH positive (intact) SDH positive (intact) Colloidal iron equivocal CD15 negative Vimentin negative CA-IX negative TFE3 negative S100 negative MelanA negative MIB1 - ~1% Immunofluorescence: Sections of renal cortex containing two glomeruli are evaluated for IgG, IgA, IgM, C3, C1q, fibrinogen and albumin. The glomeruli, tubules and vessels are negative for all reactants. Electron microscopy: Thirteen electron micrographs of a plastic products sales representative glomerulus are examined. The basement membranes are of normal thickness and contour. Foot processes are intact. Mesangial regions are within normal limits. No immune complex or fibrillary deposits are identified. Gross Description The specimen is received in zinc formalin labeled Juan Dumont/[id number] and consists of 2 leiva cylindrical soft tissue measuring 1.9 x 0.1 cm in greatest dimension, the specimen is submitted in toto in one cassette labeled (A1). Also received are similar specimens in glutaraldehyde for electron microscopy and Celso's media for immunofluorescence. -[facility] Final Diagnosis Reviewed and Interpreted By Machelle Stiles M.D. ([id number]) Electronically Signed, 11/18/2023 The final diagnosis for each specimen is based upon a gross and microscopic examination of the specimen's tissue[s], with the exception of those specimens where the diagnosis for the specimen states gross diagnosis, gross only, or similar designation, in which case the final diagnosis for that specimen is based on gross examination of the tissue[s]. Attending Provider: RAE CHAU Referring Provider: OTILIO BLANK Admitting Provider: RAE CHAU Ordering Provider: OTILIO BLANK Principal Result Maintenance Fitter: Luis Stiles Master Hearth Technician Result Maintenance Fitter: Luis Stiles CBC WITH MANUAL DIFF IF AUTO FAILS (PERFORMABLE) Collected: 11/04/2023 7:29 AM Status: F Source: [facility] TYPE CODE TESTS RESULT OUT OF RANGE REFERENCE UNITS LAB [id number] WHITE BLOOD CELL COUNT 5.9 4.0-11.1 10*9/L LAB [id number] RED BLOOD CELL COUNT, BLOOD 5.09 4.76-6.09 10*12/L LAB [id number] HEMOGLOBIN 16.4 14.3-18.1 g/dL LAB [id number] HEMATOCRIT 47.9 39.2-50.2 % LAB [id number] MEAN CORPUSCULAR VOLUME 94.1 80.0-100.0 fL LAB [id number] MEAN CORPUSCULAR HEMOGLOBIN 32.2 27.5-35.1 pg LAB [id number] MEAN CORPUSCULAR HEMOGLOBIN CONCENTRATION 34.2 32.0-36.0 g/dL LAB [id number] PLATELET COUNT 310 150-400 10*9/L LAB [id number] RED CELL DISTRIBUTION WIDTH CV 12.2 11.7-14.2 % LAB [id number] NRBC PERCENT 0.0 <=0.0 % LAB [id number] NRBC ABSOLUTE 0.00 0-0.1 10*9/L LAB [id number] NEUTROPHIL, SEGMENTED % (AUTO DIFFERENTIAL) 46.7 % LAB [id number] LYMPHOCYTE % (AUTO DIFFERENTIAL) 41.2 % LAB [id number] MONOCYTE % (AUTO DIFFERENTIAL) 9.4 % LAB [id number] EOSINOPHIL % (AUTO DIFFERENTIAL) 2.0 % LAB [id number] BASOPHIL % (AUTO DIFFERENTIAL) 0.5 % LAB [id number] GRANULOCYTE, IMMATURE % (AUTO DIFFERENTIAL) 0.2 % LAB [id number] NEUTROPHILS ABSOLUTE (AUTO DIFFERENTIAL) 2.8 1.8-6.6 10*9/L LAB [id number] LYMPHOCYTES ABSOLUTE (AUTO DIFFERENTIAL) 2.4 1.0-4.8 10*9/L LAB [id number] MONOCYTES ABSOLUTE (AUTO DIFFERENTIAL) 0.6 0.2-0.9 10*9/L LAB [id number] EOSINOPHILS ABSOLUTE (AUTO DIFFERENTIAL) 0.1 0.0-0.4 10*9/L LAB [id number] BASOPHIL ABSOLUTE (AUTO DIFFERENTIAL) 0.0 0.0-0.2 10*9/L LAB [id number] GRANULOCYTE, IMMATURE ABSOLUTE (AUTO DIFFERENTIAL) 0.0 0.0-0.05 10*9/L Result Comment: Attending Pr ovider: RAE CHAU Admitting Provider: RAE CHAU Ordering Provider: KAILEY LUEVANO Performed By: #### [id number] # ### [id number] CLIA# [id number] IR RENAL BIOPSY Observed: 11/04/2023 6:39 AM Status: F Source: [facility] PROCEDURE: Ultrasound-guided biopsy Procedural Personnel Attending physician(s): Rae Chau MD Resident physician(s): Nohemy Rowan MD Advanced practice provider(s): None Procedure Date (mm/dd/yyyy): 11/04/2023 Pre-procedure diagnosis: Renal dysfunction Post-procedure diagnosis: Same Indication: Histopathologic diagnosis Previous biopsy of same target (QCDR): No Additional clinical history: None Complications: No immediate complications. IMPRESSION: Ultrasound-guided biopsy of left renal parenchyma. Plan: Specimen(s) sent for evaluation. PROCEDURE SUMMARY: - Percutaneous US-guided coaxial core needle biopsy - Additional procedure(s): None PROCEDURE DETAILS: Pre-procedure Reference imaging for biopsy target: None Consent: Informed consent for the procedure including risks, benefits and alternatives was obtained and time-out was performed prior to the procedure. Preparation: The site was prepared and draped using maximal sterile barrier technique including cutaneous antisepsis. Anesthesia/sedation Level of anesthesia/sedation: Moderate sedation (conscious sedation) Anesthesia/sedation administered by: Independent trained observer under attending supervision with continuous monitoring of the patient?s level of consciousness and physiologic status Total intra-service sedation time (minutes): 21 Please see Intra-Procedure Timeline document and/or dedicated anesthesia documentation for additional details, including identity/credentials of independent trained observer(s) and patient status throughout procedure. Condition at the conclusion of the procedure: Stable Medications Versed (mg, IV): 2 Fentanyl (mcg, IV): 150 Lidocaine (1%, mL, SQ): 10 Imaging prior to biopsy The patient was positioned prone. Initial imaging was performed. Biopsy target: - Organ or target location: Kidney - Laterality: Left Biopsy Local anesthesia was administered. Under US guidance, the biopsy needle was advanced to the target and biopsy was performed. Coaxial needle: 17 gauge Core needle biopsy device: WellGen Core needle size: 18 gauge Number of core specimens: 3 On-site assessment of biopsy adequacy: Yes Additional sampling recommendations: None Preliminary assessment of sample adequacy: Adequate Needle removal The biopsy needle was removed and a sterile dressing was applied. Tract embolization: Gelfoam slurry Imaging following biopsy Immediate post-biopsy ultrasound was performed. Post-biopsy imaging findings: No immediate hematoma Additional Details Additional description of procedure: None Registry event: V/3/g Device used: None Equipment details: None Unique Device Identifiers: Not available Specimens removed: Biopsy samples as detailed above Estimated blood loss (mL): Less than 10 Standardized report: [email or web address]_v3.1 Attestation Signer name: RAE CHAU MD I attest that I was present for the entire procedure. I reviewed the stored images and agree with the report as written. Preliminary Interpretation by: Nohemy Rowan MD at 11/04/2023 12:07 PM Final Report E-Signed By: RAE CHAU MD at 11/04/2023 5:22 PM WSN:[id number] No comparisons were made when reading this study. Attending Provider: RAE CHAU Referring Provider: OTILIO BLANK Referring Provider: RAE CHAU Ordering Provider: OTILIO BLANK Principal Result Maintenance Fitter: RAE CHAU Master Hearth Technician Result Maintenance Fitter: NOHEMY ROWAN Pallet Assembler: SARA LOPEZ [facility] ANTIBODY REFLEX PANEL Collected: 0 11/03/2023 12:57 PM Status: F Source: [facility] TYPE CODE TESTS RESULT OUT OF RANGE REFERENCE UNITS LAB [id number] [facility] BINDING ANTIBODY-ARU P 0.0 0.0-0.4 nmol/L Result Comment: Acetylcholine receptor binding antibody result is negative. Sample will not reflex to modulating antibody testing unless blocking result is 27 percent or greater. INTERPRETIVE INFORMATION: Acetylcholine Binding Ab Negative ....... 0.0 - 0.4 nmol/L Positive ....... 0.5 nmol/L or greater Approximately 85-90 percent of patients with myasthenia gravis (MG) express antibodies to the acetylcholine receptor (AChR), which can be divided into binding, blocking, and modulating antibodies. Binding antibody can activate complement and lead to loss of AChR. Blocking antibody may impair binding of acetylcholine to the receptor, leading to poor muscle contraction. Modulating antibody causes receptor endocytosis resulting in loss of AChR expression, which correlates most closely with clinical severity of disease. Approximately 10-15 percent of individuals with confirmed myasthenia gravis have no measurable binding, blocking, or modulating antibodies. This test was developed and its performance characteristics determined by [facility]. It has not been cleared or approved by the [place] Food and Drug Administration. This test was performed in a CLIA certified laboratory and is intended for clinical purposes. LAB [id number] [facility] BLOCKING ANTIBODY-ARU P 6 0-26 % Result Comment: INTERPRETIVE INFORMATION: Acetylcholine Blocking Ab Negative ............ 0-26 percent blocking Indeterminate ....... 27-41 percent blocking Positive ............ 42 percent or greater blocking Approximately 85-90 percent of patients with myasthenia gravis (MG) express antibodies to the acetylcholine receptor (AChR), which can be divided into binding, blocking, and modulating antibodies. Binding antibody can activate complement and lead to loss of AChR. Blocking antibody may impair binding of acetylcholine to the receptor, leading to poor muscle contraction. Modulating antibody causes receptor endocytosis resulting in loss of AChR expression, which correlates most closely with clinical severity of disease. Approximately 10-15 percent of individuals with confirmed myasthenia gravis have no measurable binding, blocking, or modulating antibodies. This test was developed and its performance characteristics determined by [facility]. It has not been cleared or approved by the US Food and Drug Administration. This test was performed in a CLIA certified laboratory and is intended for clinical purposes. Performed By: [facility] [address] [place] [id number] Trailer Assembler: Shayne Pardo MD, PhD CLIA Number: [id number] Source: Unconfirmed Specimen Start Date: Ordering Provider: JOE CORDOBA Performed By: #### [id number] # ### [facility] [address], [place]-[address] IA# [id number] PROGRESS NOTE Observed: 11/03/2023 12:30 PM Status: COMPLETED Source: [facility] [id number] Juan Dumont [facility] 1990 M PROGRESS NOTE Observed: 11/03/2023 12:30 PM Status: COMPLETED Source: [facility] ASSESSMENT AND PLAN: ICD-10-CM 1. Diplopia H53.2 [facility] Antibody Reflex Panel 2. Sleep apnea, unspecified type G47.30 Juan Dumont is a 33 y.o. man presents with autonomic dysfunction and double vision after viral infection in 2020, fluctuating leg paresthesia with abdominal discomfort. Exam showed skin discoloration in hands and feet, and was otherwise unremarkable. Right eye discomfort when looking up. Could be related to underlying autonomic dysfunction, contributing to migrainous phenomena causing right eye heaviness. No clear weakness with upward gaze. Regardless, important to rule out myasthenia gravis. No neck pain make dissection unlikely. Dysautonomia in 2020. Regarding his symptoms in 2020, mycoplasma is known to cause post-infectious (immune-mediated) issues: Skin biopsy did confirm small fiber neuropathy, making small autonomic neuropathy the most likely cause for many of his symptoms. The elevated early Sjogren antibodies, abnormal SPEP as well as AChR ganglionic antibodies, makes immune mediated process initially a possibility contributing to the autonomic neuropathy. Extensive malignancy work-up (CT chest/abd/pelvis x2, US testicular) ruled out paraneoplastic process contributing to his symptoms MRI brain and C-spine have ruled out cervical lesion or intracranial lesions contributing to his symptoms. EMG has ruled out large fiber neuropathy. Skin discoloration in the hands and feet would also be concerning for underlying generalized dysautonomia. Fluctuates depending on the day. B12 deficiency could be another concern given previously low titer. S/p supplementation. Copper level mikael previously. Reassuringly, his symptoms in general has been stable over time, argue against progressive autonomic neuropathy. Normalization of AChR Ganglionic antibody also supports this concern. Tinnitus with episodic double vision and headache. LP did not show elevated intracranial pressure, and MRI scan did not show any finding that would be consistent with elevated intracranial pressure. MRV ruled out venous sinus thrombosis. Sleep study did confirm sleep apnea, which could be contributing to tinnitus as well as headache. Joint swelling, abdominal/pelvic discomfort and lower extremity paresthesia. Could be associated with other autoimmune disorder. In general stable, but continued to fluctuate depending on the day. We discussed the following during today's telehealth visit: -obtain labs to screen for myasthenia gravis. -Follow up as previously scheduled if lab is unremarkable. Earlier follow up if myasthenia gravis returned positive. -He can contact us on my health connection if questions or issues arise . HISTORY: Chief Compliant: Juan Dumont is a 30 y.o. man who presents to neurology telehealth visit for evaluation of paresthesia, tinnitus, positional lightheadedness, headache, double vision. Last clinic visit was 09/17/2023. Update since last clinic visit: On 11/01/2023, in the morning, when he tried to look up, it takes a while for his eye to focus again. When he tried to look up, he couldn't focus and align his eye. When he tried to strain his eye, it would be uncomfortable and causing right eye discomfort. It persisted for the rest of the day on 11/01/2023. On 11/01 and 11/02 it has been less intense. The rest of his symtpoms stayed about the same. He did do a hiking trip and driving the week before. He did have pneumonia months ago after resting in the car for a while. Other symptoms stayed the same. Summary from prior clinic visits: Doing well before 06/2020. Had upper respiratory tract symptoms during trip to see family. since then constellation of symptoms He has developed severe hypotension after eating. He has not passed out from these lightheadedness. He has developed severe joint pain, as well as significant paresthesia in his hands and feet. Worsens with antibiotics use. He has developed severe tinnitus that is nearly continuous and out of both ears, with head pressure sensation. Low grade temp with chills. Fatigue, brain fog, double vision when tired, vertiginous sensation, mild postural tremor. He otherwise reports no weakness, no change of balance, no dry eyes or dry mouth, no severe urinary and bowel dysfunction. Repeat Lyme FRANCK was negative. Mycoplasma IgM did return positive subsequently, and he received 10 days of doxycycline and 7 days of amoxicillin. Repeat Mycoplasma testing in October was negative Extensive serum testing unrevealing, except elevated early Sjogren antibody titer, AChR Ganglionic antibody mildly elevated, positive skin punch biopsy. Evaluation at neuro ID clinic unremarkable. EMG unremarkable. Malignancy screening with CT chest/abd/pelvis x2 and testicular US are all unremarkable. COVID-19 transiently worsened his symptoms. History of Crohn's disease. He was on Humira since 2011. He was recently taken off Humira and started on mesalamine before 2020. Symptom stabilize over time. Does have intermittent joint swelling. Also had more recent testicular pain, abdominal dull ache, as well as paresthesia down the legs. CURRENT MEDICATIONS: Current Outpatient Medications Medication Sig cholecalciferol, vitamin D3, (VITAMIN D3) 1,000 unit tablet Take 1 tablet by mouth. cyanocobalamin 1,[address] 1 tablet under the tongue daily for B12 deficiency. iron polysaccharide complex (FERREX 150 PO) MELATONIN PO Take by mouth as needed. sodium picosulfate, magnesium oxide, citric acid (CLINPEQ) ORAL solution Take per GI clinic instructions For Bowel Evacuation. No current facility-administered medications for this visit. ALLERGIES: Aspirin, Ibuprofen, Infliximab, and Azithromycin EXAM: Vital Signs: Visit Vitals BP 123/71 (BP Location: , Patient Position: Sitting) Pulse 59 Temp 36.4 ?C (97.5 ?F) (Temporal) Resp 18 Ht 1.753 m (5' 9 ) Wt 78.5 kg (173 lb) SpO2 98 percent BMI 25.55 kg/m? General Examination General: No apparent distress. Respiratory: Normal respiratory effort. Skin: No rashes noted Extremities: Foot is cool to touch. Discoloration in the fingers and toes. Normal radial pulses. Neurological Examination MENTAL STATUS: Alert, attentive and oriented to person, place and time; ability to follow commands intact. LANGUAGE: Language is coherent and fluent without aphasia. CRANIAL NERVES: II: Visual [place] full to confrontation. Pupils equal, round, reactive to light. III, IV, : Extraocular eye movements full; no nystagmus. no ptosis and no weakness noted, with persisted upward gaze, V: Facial sensation: Normal light touch in all three divisions VII: Facial movements: eyelid closure, puffing the cheeks and smile normal bilaterally VIII: Hearing is intact to normal conversation. IX, X: Soft palate elevation normal in midline. No dysarthria. XI: Normal sternocleidomastoid and trapezius strength and bulk XII: Tongue without atrophy or fasciculations; tongue movement normal MOTOR STRENGTH (MRC 0-5): Normal bulk and tone in the bilateral upper and lower extremities. No cramps, fasciculations or contractures. RIGHT LEFT Neck flexion 5 Neck extension 5 UPPER EXTREMITY Shoulder ABD 5 5 Elbow extension 5 5 Elbow flexion 5 5 Wrist extension 5 5 Wrist flexion 5 5 Finger ABD 5 5 Finger extension 5 5 Finger flexion 5 5 Thumb ABD 5 5 LOWER EXTREMITY Hip flexion 5 5 Knee extension 5 5 Knee flexion 5 5 Ankle Dorsiflexion 5 5 Ankle Plantarflexion 5 5 Toe Flexion 5 5 Toe Extension 5 5 REFLEXES: RIGHT LEFT Biceps +2 +2 Triceps +2 +2 Brachioradialis +2 +2 Patellar +2 brisk +2 brisk Achilles +2 +2 Plantar response downgoing downgoing Santos's absent absent SENSORY: Pinprick/temperature: intact Vibration: intact Light touch: intact Romberg: intact COORDINATION: Finger to nose testing is accurate without dysmetria. No tremor or abnormal movements noted. GAIT: Casual gait is normal. Able to walk on toes and heels. Normal tandem walk. DATA: Laboratory, radiographic and medical studies were independently reviewed and pertinent for: CT abdomen/pelvis with contrast: 09/26/2023: 1. No acute abnormality in the abdomen or pelvis. Density seen on prior x-ray appears to correlate to the region of the stomach likely representing ingested material. 2. Partially imaged hydroceles. 05/08/2023: Vitamin D 49; B12: >1000; CRP < 5; BMP: 140/4.7/105///1.37/87; AST: 32; ALT: 37; CBC: 04/06.3/50/361; 06/19/2022: SPEP unremarkable. Ferritin 258; iron panel negative; BMP: 138/4/107///; paraneoplastic panel (not including AChR ganglionic antibody titer) negative; CRP <5; ESR 2; CCP < 20; RF < 10; [place] light chain 2.05 (normal < 1.94); Copper level normal; 02/08/2022: Vitamin B12: 286; Vitamin D 45; CRP 9.2; BMP: 141/3.6/105/27/28/1.04/80; AST: 16; ALT: 18; CBC: 10.3/16.7/49.1/306; 05/24/2021: early sjogren panel negative; [place] light chain 2.12, AChR gnaglionic antibody 0.05; 04/24/2021: CSF testing: OP 17; lyme PCR, oligoclonal band negative; protein 32; Glucose 65; Nucleated cell 2; RBC 0; VDRL non-reactive; 04/24/2021: TS-HDS and FGFR3 antibodies negative. ESR 2; CRP: 1.9; paraneoplastic antibody panel: AChR ganglionic neuronal antibody 0.04; 02/27/2021: Homocysteine, vitamin E, MMA, tick fever antibody, thyroid antibody, HIV, B6, B12 341, A1C 5.1; kelch-like protein 11 antibody negative; [place]: lambda ratio: [place] slightly elevated at 2.1; UPEP negative; early Sjogren antibody panel SP-1 IgG elevated at 29 (normal < 20); 12/25/2020: heavy metal negative; unremarkable SPEP, ANCA. 12/19/2020: Antihistone antibody negative; CRP 2.6; 11/10/2020: C3, C4 (slightly reduced at 11), Folate 17.6; B12: 508; mycoplasma IgG and IgM elevated; 07/27/2020: ARIANNA unremarkable. EMG/NCS 01/19/2021: This is a normal study. Specifically, there is no electrodiagnostic evidence for a large fiber polyneuropathy. Skin biopsy: positive for small fiber neuropathy from one site; Imaging studies were independently viewed and pertinent for: X-ray L-spine: 09/18/2023: 1. No fracture or spondylolisthesis in the lumbar spine. 2. Density in the left upper quadrant was not noted on the recent CT scan. CT chest/abd/pelvis 08/14/2021: normal; MRV brain w AND w/o contrast: 05/10/2021: Normal MR venogram of the head; no evidence of dural venous sinus thrombosis. 01/05/2021: MRI C-spine w AND w/o contrast: No cord lesion, significant degeneration or abnormal enhancement. 02/14/2021: Ultrasound testicular: 1. No intratesticular mass lesion. 2. Moderate-sized right-sided hydrocele. CT chest/abd/pelvis with contrast 02/27/2021: 1. No lymphadenopathy or other evidence for malignancy. 2. Indeterminate density exophytic lesion extending off of the left kidney measuring up to 1.1 cm, likely representing a hemorrhagic/proteinaceous cyst. This lesion can likely be further characterized with ultrasound given location. Renal ultrasound 03/01/2021: 1. The left kidney lesion noted on the previous CT scan has low density in the CT scan are today's ultrasound it is anechoic. It is small in size and through-transmission/posterior acoustical enhancement are not optimally displayed, but the finding likely represents a simple cortical renal cyst. 2. Normal left kidney and normal bladder. I spent total of 30 minutes in reviewing record, preparing to see patient, independently interpreting results, counseling, discussion of treatment options, coordination care, documentation. Details outlined in assessment and plan. Thank you so much for this consultation and for allowing us to be involved in the care of Juan Dumont. If there are any further questions or concerns, please contact the [facility] at [phone] for assistance. Joe Cordoba Copy Coordinator of Neurology Pager: [phone] 11/03/2023 PROGRESS NOTE Observed: 11/03/2023 12:30 PM Status: COMPLETED Source: [facility] ABDOMEN/PELVIS WITH CONTRAST Observed: 09/26/2023 10:31 AM Status: F Source: [facility] CT ABDOMEN/PELVIS WITH CONTR AST HISTORY: Abnormality on recent lumbar spine x-ray. Pelvic pain. TECHNIQUE: CT abdomen and pelvis with intravenous contrast. One of the following dose optimization techniques was utilized in the performance of this exam: Automated exposure control; adjustment of the mA and/or kV according to the patient's size; or use of an iterative reconstruction technique. Specific details can be referenced in the facility's radiology CT exam operational policy. CONTRAST: 100 mL Isovue-370 COMPARISON: CT 08/14/2021 FINDINGS: Visualized lung bases: Negative. Hepatobiliary: Negative. Spleen: Negative. Adrenals: Negative. Pancreas: Negative. Kidneys/: Small left renal cyst. Partially imaged hydroceles. GI: Normal bowel caliber. No obstruction. Nonvisualized appendix, no pericecal inflammation. Medication pills in the stomach. Vessels/spaces/nodes: Negative. Bones/soft tissues: No acute osseous abnormality or suspicious osseous lesion. IMPRESSION: 1. No acute abnormality in the abdomen or pelvis. Density seen on prior x-ray appears to correlate to the region of the stomach likely representing ingested material. 2. Partially imaged hydroceles. Report E-Signed By: Alban Watson DO at 09/26/2023 1:42 PM WSN:[id number] No comparisons were made when reading this study. Referring Provider: JOE CORDOBA Ordering Provider: JOE CORDOBA Principal Result Maintenance Fitter: ALBAN WATSON Pallet Assembler: MODESTA JOVEL XR LUMBAR SPINE 4 VIEW (AP,LAT,FLEX,EXT) Observed: 09/18/2023 7:27 AM Status: F Source: [facility] XR LUMBAR SPINE 4 VIEW (AP,L AT,FLEX,EXT) History: Back pain. Comparison study: CAT scan August 14, 2021. Findings: There are 5 nonrib-bearing lumbar vertebrae. There is no fracture, spondylolisthesis or spondylolysis. The sacroiliac joints are unremarkable. Density in the left upper quadrant was not noted on the recent CT scan. IMPRESSION: 1. No fracture or spondylolisthesis in the lumbar spine. 2. Density in the left upper quadrant was not noted on the recent CT scan. Report E-Signed By: Kenny Mackay MD at 09/18/2023 12:28 PM WSN:[id number] Eval ankylosing spondylosis vs. arthritis in the back No comparisons were made when reading this study. Referring Provider: JOE CORDOBA Ordering Provider: JOE CORDOBA Principal Result Maintenance Fitter: KENNY MACKAY Pallet Assembler: SKIP ONEILL PROGRESS NOTE Observed: 09/17/2023 1:00 PM Status: COMPLETED Source: [facility] [id number] Juan Dumont [facility] 1990 M PROGRESS NOTE Observed: 09/17/2023 1:00 PM Status: COMPLETED Source: [facility] ASSESSMENT AND PLAN: ICD-10-CM 1. Low back pain with bilateral sciatica, unspecified back pain laterality, unspecified chronicity M54.42 XR LUMBAR SPINE 4 VIEW (AP,LAT,FLEX,EXT) M54.41 2. Dysautonomia (HC CODE) G90.1 3. Pain in both testicles N50.811 N50.812 No medications were added in this encounter. Juan Dumont is a 33 y.o.man presents with autonomic dysfunction and double vision after viral infection in 2020, as well as new onset leg paresthesia with abdominal discomfort. Exam showed skin discoloration in hands and feet, and was otherwise unremarkable. Dysautonomia in 2020. Regarding his symptoms in 2020, mycoplasma is known to cause post-infectious (immune-mediated) issues: Skin biopsy did confirm small fiber neuropathy, making small autonomic neuropathy the most likely cause for many of his symptoms. The elevated early Sjogren antibodies, abnormal SPEP as well as AChR ganglionic antibodies, makes immune mediated process initially a possibility contributing to the autonomic neuropathy. Extensive malignancy work-up (CT chest/abd/pelvis x2, US testicular) ruled out paraneoplastic process contributing to his symptoms MRI brain and C-spine have ruled out cervical lesion or intracranial lesions contributing to his symptoms. EMG has ruled out large fiber neuropathy. Reassuringly, his symptoms in general has been stable over time, argue against progressive autonomic neuropathy. Normalization of AChR Ganglionic antibody also supports this concern. Skin discoloration in the hands and feet would also be concerning for underlying generalized dysautonomia. B12 deficiency could be another concern given previously low titer. S/p supplementation. Copper level mikael previously. Tinnitus with episodic double vision and headache. LP did not show elevated intracranial pressure, and MRI scan did not show any finding that would be consistent with elevated intracranial pressure. MRV ruled out venous sinus thrombosis. Sleep study did confirm sleep apnea, which could be contributing to tinnitus as well as headache. Symptoms stable in general. Joint swelling, abdominal/pelvic discomfort and lower extremity paresthesia. Could be associated with other autoimmune disorder. In general stable, but continued to fluctuate depending on the day. Most recent back pain, abdominal discomfort and leg paresthesia could be related to lumbosacral radiculopathy that is provoked by squatting vs. Increased pressure from possible pelvic dysfunction onto the lumbosacral plexus after resuming higher intensity squatting exercise. We discussed the following during today's telehealth visit: -likely cause of his current symptoms were discussed at length. Patient showed understanding. -Will start with L-spine to look for degenerative changes and obvious lesion in the lower spine region. -If unrevealing, will consider repeat CT abd/pelvis. -Return to neurology clinic as previously scheduled. -He can contact us on my health connection if questions or issues arise . HISTORY: Patient ID: Juan Dumont is a 30 y.o. man who presents to neurology telehealth visit for evaluation of paresthesia, tinnitus, positional lightheadedness, headache, double vision. Last clinic visit was 08/17/2020. Update since last clinic visit: -3-5 weeks ago, after coming back from vacation, he went back to weight lifting. He was doing back squats at 135lb. He worked out for 1 hour. Without any trigger, he has been experiencing dull ache in this testicles. There is burning sensation pain radiating down the medial sides of both legs, which is more on top than lower leg, and also in the toes. There is also dull aching abdominal pain. -Few months ago, he had severe dull aching in mid-line lower back. It went away for month, and recurred back in the past 1 week. -He did not have bleeding in the stool. He has not had increased sensory loss, weakness or other autonomic symptoms. -He did receive a testicular ultrasound, which showed hydroceles. -Renal ultrasound also did not show any concerns. Summary from prior clinic visits: Doing well before 06/2020. Had upper respiratory tract symptoms during trip to see family. since then constellation of symptoms He has developed severe hypotension after eating. He has not passed out from these lightheadedness. He has developed severe joint pain, as well as significant paresthesia in his hands and feet. Worsens with antibiotics use. He has developed severe tinnitus that is nearly continuous and out of both ears, with head pressure sensation. Low grade temp with chills. Fatigue, brain fog, double vision when tired, vertiginous sensation, mild postural tremor. He otherwise reports no weakness, no change of balance, no dry eyes or dry mouth, no severe urinary and bowel dysfunction. Repeat Lyme FRANCK was negative. Mycoplasma IgM did return positive subsequently, and he received 10 days of doxycycline and 7 days of amoxicillin. Repeat Mycoplasma testing in October was negative Extensive serum testing unrevealing, except elevated early Sjogren antibody titer, AChR Ganglionic antibody mildly elevated, positive skin punch biopsy. Evaluation at neuro ID clinic unremarkable. EMG unremarkable. Malignancy screening with CT chest/abd/pelvis x2 and testicular US are all unremarkable. COVID-19 transiently worsened his symptoms. History of Crohn's disease. He was on Humira since 2011. He was recently taken off Humira and started on mesalamine before 2020. Symptom stabilize over time. Does have intermittent joint swelling. Also had more recent testicular pain, abdominal dull ache, as well as paresthesia down the legs. CURRENT MEDICATIONS: Current Outpatient Medications Medication Sig cholecalciferol, vitamin D3, (VITAMIN D3) 1,000 unit tablet Take 1 tablet by mouth. cyanocobalamin 1,[address] 1 tablet under the tongue daily for B12 deficiency. iron polysaccharide complex (FERREX 150 PO) MELATONIN PO Take by mouth as needed. sodium picosulfate, magnesium oxide, citric acid (CLINPEQ) ORAL solution Take per GI clinic instructions For Bowel Evacuation. No current facility-administered medications for this visit. ALLERGIES: Aspirin, Ibuprofen, Infliximab, and Azithromycin EXAM General/Constitutional: well-appearing, no acute distress HENT: no acute abnormalities noted Eyes: no ptosis; normal spontaneous eye movements in all directions. Resp: no increased respiratory effort Cranial nerves: Grossly normal eye movements, visual [place], facial strength, DATA: Laboratory, radiographic and medical studies were independently reviewed and pertinent for: 05/08/2023: Vitamin D 49; B12: >1000; CRP < 5; BMP: 140/4.7/105/22/28/1.37/87; AST: 32; ALT: 37; CBC: 9/17.3/50/361; 06/19/2022: SPEP unremarkable. Ferritin 258; iron panel negative; BMP: 138/4/107/22/24/1/90; paraneoplastic panel (not including AChR ganglionic antibody titer) negative; CRP <5; ESR 2; CCP < 20; RF < 10; [place] light chain 2.05 (normal < 1.94); Copper level normal; 02/08/2022: Vitamin B12: 286; Vitamin D 45; CRP 9.2; BMP: 141/3.6/105/27/28/1.04/80; AST: 16; ALT: 18; CBC: 10.3/16.7/49.1/306; 05/24/2021: early sjogren panel negative; [place] light chain 2.12, AChR gnaglionic antibody 0.05; 04/24/2021: CSF testing: OP 17; lyme PCR, oligoclonal band negative; protein 32; Glucose 65; Nucleated cell 2; RBC 0; VDRL non-reactive; 04/24/2021: TS-HDS and FGFR3 antibodies negative. ESR 2; CRP: 1.9; paraneoplastic antibody panel: AChR ganglionic neuronal antibody 0.04; 02/27/2021: Homocysteine, vitamin E, MMA, tick fever antibody, thyroid antibody, HIV, B6, B12 341, A1C 5.1; kelch-like protein 11 antibody negative; [place]: lambda ratio: [place] slightly elevated at 2.1; UPEP negative; early Sjogren antibody panel SP-1 IgG elevated at 29 (normal < 20); 12/25/2020: heavy metal negative; unremarkable SPEP, ANCA. 12/19/2020: Antihistone antibody negative; CRP 2.6; 11/10/2020: C3, C4 (slightly reduced at 11), Folate 17.6; B12: 508; mycoplasma IgG and IgM elevated; 07/27/2020: ARIANNA unremarkable. EMG/NCS 01/19/2021: This is a normal study. Specifically, there is no electrodiagnostic evidence for a large fiber polyneuropathy. Skin biopsy: positive for small fiber neuropathy from one site; Imaging studies were independently viewed and pertinent for: US testicular: 09/16/2023: Large right and trace left hydroceles. US renal 06/19/2023: Unremarkable sonographic appearance of the kidneys. CT chest/abd/pelvis 08/14/2021: normal; MRV brain w AND w/o contrast: 05/10/2021: Normal MR venogram of the head; no evidence of dural venous sinus thrombosis. 01/05/2021: MRI C-spine w AND w/o contrast: No cord lesion, significant degeneration or abnormal enhancement. 02/14/2021: Ultrasound testicular: 1. No intratesticular mass lesion. 2. Moderate-sized right-sided hydrocele. CT chest/abd/pelvis with contrast 02/27/2021: 1. No lymphadenopathy or other evidence for malignancy. 2. Indeterminate density exophytic lesion extending off of the left kidney measuring up to 1.1 cm, likely representing a hemorrhagic/proteinaceous cyst. This lesion can likely be further characterized with ultrasound given location. Renal ultrasound 03/01/2021: 1. The left kidney lesion noted on the previous CT scan has low density in the CT scan are today's ultrasound it is anechoic. It is small in size and through-transmission/posterior acoustical enhancement are not optimally displayed, but the finding likely represents a simple cortical renal cyst. 2. Normal left kidney and normal bladder. I spent total of 30 minutes in reviewing record, preparing to see patient, independently interpreting results, counseling, discussion of treatment options, coordination care, documentation. Details outlined in assessment and plan. The patient was seen over live interactive videoconferencing and Juan Dumont has signed a consent form for live interactive videoconferencing. I discussed the use of videoconferencing with the patient including alternative methods for meeting, the limits of confidentiality and emergency procedures and resources. Referred by Provider: No ref. provider found Location of patient: at their home in [place] Location of provider: at medical office in [place] Thank you so much for this consultation and for allowing us to be involved in the care of Juan Dumont. If there are any further questions or concerns, please contact the [facility] at [phone] for assistance. Joe Cordoba Copy Coordinator of Neurology Pager: [phone] 09/17/2023 PROGRESS NOTE Observed: 09/17/2023 1:00 PM Status: COMPLETED Source: [facility] TESTICULAR W DOPPLER Observed: 2023 1:45 PM Status: F Source: [facility] [employer] [facility] US TESTICULAR W DOPPLER HISTORY: possible hydrocele/ testicle pain COMPARISON: None. FINDINGS: Testes: Normal in size and echogenicity without mass or microlithiasis. The right testis measures 3.7 x 3.2 x 3.4 cm and the left testis measures 4.1 x 2.1 x 3.1 cm. Symmetric blood flow documented by color Doppler ultrasound. Low resistance arterial blood flow within each testicle by duplex Doppler ultrasound. Venous blood flow is also documented. Epididymides: Negative. Blood flow is appropriate in each epididymis by color Doppler ultrasound. Hydrocele: Large right and trace left hydrocele Varicocele: None. IMPRESSION: Large right and trace left hydroceles. Report E-Signed By: Jacques Canales at 09/15/2023 3:26 PM WSN:[id number] No comparisons were made when reading this study. Referring Provider: PATRICK MYERS Ordering Provider: PATRICK MYERS Principal Result Maintenance Fitter: JACQUES CANALES Pallet Assembler: HONG LUCERO COMPLETE URINALYSIS (NO CULTURE REFLEX) Collected: 09/12/2023 4:25 PM Status: F Source: [facility] Order Comment: SEND FOR CULT URE REGARDLESS TYPE CODE TESTS RESULT OUT OF RANGE REFERENCE UNITS LAB [id number] COLOR, URINE Yellow Yellow LAB [id number] APPEARANCE (UA) Clear Clear LAB [id number] SPECIFIC GRAVITY (UA) 1.025 1.005-1.030 LAB [id number] PH URINE 6.0 5.0-8.0 LAB [id number] PROTEIN (UA) Negative Negative mg/dL LAB [id number] GLUCOSE, URINE Negative Negative mg/dL LAB [id number] KETONES, URINE 15 Abnormal Negative mg/dL LAB [id number] BILIRUBIN (UA) Negative Negative LAB [id number] BLOOD (UA) Negative Negative LAB [id number] NITRITE (UA) Negative Negative LAB [id number] UROBILINOGEN (UA) 0.2 <2.0 EU/dL LAB [id number] LEUKOCYTE ESTERASE (UA) Negative Negative LAB [id number] WHITE BLOOD CELLS, URINE 0-5 <=10 /HPF LAB [id number] RED BLOOD CELLS, URINE (UA) 0-2 0-2 /HPF LAB [id number] EPITHELIAL, SQUAMOUS (UA) 0-2 <=10 /HPF Result Comment: Ordering Pro vider: PATRICK MYERS Performed By: #### [id number] # ### [facility] [address] [place], [place]? [address] Mackenzie Sifuentes MD [phone] CLIA# [id number] URINE CULTURE Observed: 09/12/2023 4:25 PM Status: F Source: [facility] URINE CULTURE MIXED UROGENIT AL OR SKIN DEWAYNE 100-1,000 CFU/mL Mixed urogenital or skin dewayne Ordering Provider: PATRICK MYERS Performed By: #### [id number] ## ## [place], [place] [address] [facility] [facility]# [id number] PROGRESS NOTE Observed: 09/10/2023 8:30 AM Status: COMPLETED Source: [facility] [id number] Juan Dumont [facility] 1990 M PROGRESS NOTE Observed: 09/10/2023 8:30 AM Status: COMPLETED Source: [facility] Assessment and Plan: 1. Hydrocele 2. Pain in both testicles -We discussed options for the patient's likely right hydrocele. I would recommend a scrotal ultrasound to confirm this patient has a hydrocele, in addition to ruling out any other underlying testicular pathology. If hydrocele confirmed, we discussed options including observation, aspiration, hydrocelectomy. We discussed the risks and benefits of each approach at length. We discussed the risk of hydrocelectomy, in addition to prolonged and difficult recovery in some circumstances. We discussed that in general his risk of hydrocelectomy would be mildly increased given his history of Crohn's disease and also history of aspiration and injection of sclerosing agent by urologist in [place]. The patient is currently leaning towards observation. He is interested in ultrasound. -We discussed the differential diagnosis of the patient's testicular pain. I have recommended conservative strategies to help with this, including rest, ice, scrotal support, Tylenol and ibuprofen as needed. We discussed that hydrocelectomy is the risk of worsening his testicular pain. I have also recommended considering pelvic floor physical therapy. He plans to look up physical therapy exercises on his own at home. -We also discussed the potential role bladder irritants and his occasional suprapubic discomfort and testicular pain. Dietary handout given today. We will call scrotal ultrasound results. Subjective: Patient ID: Drew is a 33 y.o. male who presents to [facility] for hydrocele HPI Mr. Dumont is here with hydrocele. First noticed a few weeks ago, after heavy squat day. He does have neuropathy and sometimes is hard to indicate true pain vs. Neuropathy. Seems worse on the right, but sometimes does switch to the left. Reports testicular pain as well. Denies trauma to the scrotum. Previously under the care of a urologist in [place]. Patient reports that urologist performed aspiration and injection of sclerosing agent. Hx of Crohn's disease Patient Entered Data: How have you been since your last visit? Large hydrocele on the right side (present as long as I can remember, but getting bigger slowly over time). It's starting to take up too much space, so things are getting a little tight down there, and I'd like to get it taken care of. I've been having some pain in my testicles (both, but moreso on right) for a few weeks. It's mostly burny/achy, and it comes and goes. I'm wondering about these possible causes... 1) Pain from the hydrocele pushing on stuff or being more complicated than I understand. 2) Muscle tightness/strain -- was worst after doing heavy squats and stretching ~sometimes~ helps. 3) A hernia. 4) Nerve entrapment related to muscle stuff. 5) A varicocele or something else inflammation-related. 6) Too much hot sauce? I mention this because think I noticed this once in the past, but I haven't had time yet after cutting hot sauce to see if the burning goes away. 7) Scarier things I'd prefer not to think about. What are the top 3 questions for your visit? Recent PSAs: No results found for: PSATOTAL Creatinine: Lab Results Component Value Date Creatinine Serum/Plasma 1.23 06/11/2023 Recent UAs: Lab Results Component Value Date Glucose Urine Negative 06/11/2023 Bilirubin Urine Negative 06/11/2023 Ketones Urine Negative 06/11/2023 Specific [place] Urine 1.007 06/11/2023 pH Urine 6.5 06/11/2023 Protein Urine Negative 06/11/2023 Urobilinogen Urine 0.2 06/11/2023 Nitrite Urine Negative 06/11/2023 Leukocyte Esterase Urine Negative 06/11/2023 Urine Culture: No results found for: URINECULTUR CURRENT MEDICATIONS: Current Outpatient Medications Medication Sig cholecalciferol, vitamin D3, (VITAMIN D3) 1,000 unit tablet Take 1 tablet by mouth. cyanocobalamin 1,[address] 1 tablet under the tongue daily for B12 deficiency. iron polysaccharide complex (FERREX 150 PO) MELATONIN PO Take by mouth as needed. sodium picosulfate, magnesium oxide, citric acid (CLINPEQ) ORAL solution Take per GI clinic instructions For Bowel Evacuation. No current facility-administered medications for this visit. 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 Runs high (135/80) but is very low recently (105/60) Neuropathy Confirmed in Feb 2021 small fiber neuropathy Ulcer since 1999 Crohns Past Surgical History: Procedure Laterality Date GUM SURGERY 2017 PREVIOUS SURGERIES 2008; 2017; routine wisdom teeth removed; gum surgery; routine colonoscopies WISDOM TOOTH EXTRACTION 2007 Family History Problem Relation Age of Onset Irritable bowel syndrome Sister Colorectal Cancer Maternal Grandmother 90 Stroke Maternal Grandmother Cancer Maternal Grandmother colon cancer at age 90 Stroke Paternal Grandmother Cancer Maternal Uncle melanoma Kidney disease Paternal Uncle Kidney disease Paternal Aunt Social History Socioeconomic History Marital status: Single Occupational History Occupation: grad student Tobacco Use Smoking status: Never Smokeless tobacco: Never Vaping Use Vaping status: Never Used Substance and Sexual Activity Alcohol use: Yes Alcohol/week: 4.0 standard drinks of alcohol Types: 4 Standard drinks or equivalent per week Comment: I'm into making cocktails Drug use: Not Currently Frequency: 2.0 times per week Types: Rec marijuana Comment: Usually edibles, but sometimes I smoke Sexual activity: Yes Partners: Female control/protection: I.U.D. Comment: Monogamous long-term partner Review of Systems Constitutional: Negative for activity change, chills, fever and unexpected weight change. HENT: Negative for ear pain. Eyes: Negative for visual disturbance. Respiratory: Negative for shortness of breath. Cardiovascular: Negative for chest pain. Gastrointestinal: Negative for abdominal distention, abdominal pain, nausea and vomiting. Genitourinary: Negative for difficulty urinating, flank pain, hematuria and urgency. Musculoskeletal: Negative for back pain. Skin: Negative for rash. Neurological: Negative for headaches. Hematological: Does not bruise/bleed easily. Psychiatric/Behavioral: Negative for confusion. Objective: Vital Signs: There were no vitals taken for this visit. Physical Exam Vitals and nursing note reviewed. Constitutional: Appearance: He is well-developed. HENT: Head: Normocephalic and atraumatic. Pulmonary: Effort: Pulmonary effort is normal. Abdominal: General: There is no distension. Palpations: Abdomen is soft. Genitourinary: Musculoskeletal: General: Normal range of motion. Cervical back: Normal range of motion. Skin: General: Skin is warm. Neurological: Mental Status: He is alert. No results found for this or any previous visit (from the past 24 hour(s)). TIME/COUNSELING: I spent 20 minutes [id number] with Juan Chausock. Greater than 50 percent of time was spent in counseling/coordination of care. See note above for details. Patrick Myers MD PROGRESS NOTE Observed: 09/10/2023 8:30 AM Status: COMPLETED Source: [facility] REPOSITORY RGIES DATE TYPE / CODE NAME / CODE REACTION SEVERITY SOURCE DRUG INGREDI/41187 1003(SNOMED CT) ASPIRIN BLEEDING~Other Severe (Severity Modifier) (Qualifier Value) [facility] DRUG INGREDI/23224 1003(SNOMED CT) IBUPROFEN BLEEDING~Other Severe (Severity Modifier) (Qualifier Value) [facility] DRUG INGREDI/28283 1003(SNOMED CT) INFLIXIMAB JOINT SWELLI~Other~SOB~S welling Severe (Severity Modifier) (Qualifier Value) [facility] DRUG INGREDI/54021 1003(SNOMED CT) AZITHROMYCIN TINGLING SENSATION [facility] ENCOUNTERS ADMIT/DISCHARGE ACCOUNT NUMBER ADMITTING ENCOUNTER CLASS LOCATION SOURCE 02/17/2024/02/17/20 24 [id number] Ambulatory Building:PHY -HRUC [facility] 01/30/2024/01/30/20 24 [id number] Ambulatory Building:CCM CLAB [facility] 01/30/2024 [id number] Ambulatory Building:DIV -CCMCNEUR [facility] 01/16/2024/01/16/20 24 [id number] Ambulatory Building:PV -FMCWLK [facility] 12/26/2023 [id number] Ambulatory Building:URO N [facility] 12/26/2023 [id number] Ambulatory Building:URO N [facility] 11/04/2023/11/04/19 24 [id number] MD RAE CHAU Ambulatory Building:ACV PRoom: 31Bed: A [facility] 11/03/2023/11/03/19 24 [id number] Ambulatory Building:CCM CLAB [facility] 11/03/2023 [id number] Ambulatory Building:DIV -CCMCNEUR [facility] 09/26/2023/09/26/19 24 [id number] Ambulatory Building:PV -P CAT [facility] 09/18/2023/09/18/19 24 [id number] Ambulatory Building:PV -P RAD [facility] 09/17/2023 [id number] [facility] 09/15/2023 [id number] [facility] 09/12/2023 [id number] Ambulatory Building:BF -BFLAB [facility] 09/10/2023 [id number] [facility] PAYERS ENCOUNTER GUARANTOR PAYER SUBSCRIBER SOURCE 02/17/2024 JUAN MCDANIELSB: [place] [id number]: () [place] MED[place]Policy Number: [id number] Date:3690-51-43TVYWUKM EC (ASC)[address] [place] [address]TD: JUAN MCDANIELSB: [id number] E [employer] [facility] [id number]: (HP) [facility] 01/30/2024 JUAN HOYT: [employer] [id number]: (HP) Primary Insurance:[place] MEDICAIDPolic Number: [id number] Date:5726-32-11TKFOEIZ EC (ASC[address] [address]KO: JUAN MCDANIELSB: [id number] E [place] [id number]: (HP) [facility] 01/30/2024 JUAN HOYT: [facility] [address]Tjs: (HP) Primary Insurance:[place] MEDICA[place]Policy Number: [id number] Date:6761-06-81VARRVUM EC (ASC)[address], [place] [address]BI: JUAN MCDANIELSB: [id number] E SHANTE [facility] [address]Gke: (HP) [facility] 01/16/2024 JUAN MCDANIELSB: [facility] [id number]: (HP) Primary Insurance:[place] MEDICAIDPolicy Number: [id number] Date:1994[birth year]ZMERIMO EC (ASC)[address], [place] [address]MA: JUAN MCDANIELSB: [id number] [facility] [id number]: (HP) [facility] 12/26/2023 JUAN HOYT: [facility] [address]Kkz: (HP) Primary Insurance:[place] MEDICAIDPolicy Number: [id number] Date:3586-62-38VCTFQCT EC (ASC)[address], [place] [address]WK: JUAN HOYT: [id number] [facility] [id number]: (HP) [facility] 12/26/2023 JUAN MCDANIELSB: Tory ARRIETA [place] [facility] [id number]: (HP) [place] Insurance:[place] MED[place] Number: [id number] Date:2341-48-73XLMOMUH EC (ASC[address], [place] [address]MC: JUANWAQAR PITT ARSLANB: [id number] E [place] [address]Bbq: (HP) [facility] 11/04/2023 JUAN YOANDY MCDANIELSB: [place] [address]Bkt: (HP) [place] Insurance:[place] MEDICAID[place] Number: [id number] Date:0253-26-87ZKANWMY EC (ASC[address], [place] [address]QX: JUAN YOANDY MCDANIELSB: [id number] E SHANTE ARRIETA [place] [id number]: (HP) [facility] 11/03/2023 JUAN YOANDY MCDANIELSB: E SHANTE ARRIETA [place] [id number]: (HP) [place] Insurance:[place] MEDICAIDPolicy Number: [id number] Date:5901-03-99TXUQXXH EC (ASC)[address], [place] [address]AP: JUAN MCDANIELSB: [id number] [place] [address]Enl: (HP) [facility] 11/03/2023 JUAN YOANDY MCDANIELSB: E SHANTE ARRIETA [employer] [place] [address]Fab: (HP) [place] Insurance:[place] MEDICAIDPolicy Number: [id number] Date:5289-60-64LXFNRRE EC (ASC[address], [place] [address]DJ: JUAN MCDANIELSB: [id number] [address] [place], [place] [address]Tax: (HP) [facility] 09/26/2023 JUAN HOYT: E SHANTE ESTRADAPraekelt [facility] [address]Nca: (HP) [place] Insurance:[place] MEDICAIDPolicy Number: [id number] Date:5009-91-71HOUUYAK EC (ASC[address], [place] [address]RN: JUAN YOANDY MCDANIELSB: [id number] E SHANTE ESTRADAPraekelt [facility] [address]Dek: (HP) [facility] 09/18/2023 JUAN MCDANIELSB: E SHANTE ARRIETA [place] [id number]: (HP) [place] Insurance:[place] MEDICAIDPolicy Number: [id number] Date:0620-91-39UZEUGNH EC (ASC[address], [place] [address]WC: JUAN HOYT: [id number] E SHANTE ARRIETA [place] [id number]: (HP) [facility] 09/17/2023 JUAN HOYT: Tory ESTRADAPraekelt Foundation [address]Dvr: (HP) Primary Insurance:[place] MEDICAIDPolic Number: [id number] Date:5800-02-66CDKKBCX EC (ASC[address], [place] [address]OL: JUAN HOYT: [id number] E SHANTE ARRIETA [place] [id number]: (HP) [facility] 09/15/2023 JUAN HOYT: E SHANTE ARRIETA [place] [id number]: (HP) Primary Insurance:[place] MEDICAIDPolicy Number: [id number] Date:7085-56-34CWYRDBI EC (ASC)[address], [place] [address]ZW: JUAN MCDANIELSB: [id number] [place] [address]Xqe: (HP) [facility] 09/12/2023 JUAN MCDANIELSB: [place] [address]Oyi: (HP) Primary Insurance:[place] MEDICAIDPolicy Number: [id number] Date:9795-34-83KGMCPAX EC (ASC[address], [place] [address]KX: JUAN MCDANIELSB: [id number] [place] [address]Nqd: (HP) [facility] 09/10/2023 JUAN MCDANIELSB: [place] [address]Lvq: (HP) Primary Insurance:[place] MEDICAIDPolicy Number: [id number] Date:5289-74-19XCFZAHU EC (ASC)[address], [place] [address]XB: JUAN MCDANIELSB: [id number] Tory ESTRADAPraekelt Foundation [address]Avk: (HP) [facility]
--- OUTSIDE RECORDS SUMMARY | 2024-08-17 06:35 | XMS_ITS | Clinical Summary ---
Author Organization [facility] Address [id number] [place] [address] Care Team Providers Care Director Client Name Role Phone Tracey Blank DO Unavailable [phone] Chago Romo MD Unavailable Asked, Do Not Notify Primary Care Provider Unava ilable Allergies Active Allergy Reactions Criticality Noted Date Comments Aspirin BLEEDING,Other Reaction High 10/28/2012 Other reaction(s): Adverse reaction, Other (See Comments) Stomach pain ulcers Due to crohn's ulcers Due to crohn's Azithromycin TINGLING SENSATION 01/16/2023 Ibuprofen BLEEDING,Other Reaction High 10/28/2012 Other reaction(s): Adverse reaction, GI bleeding, Other (see comments), Other (See Comments) ulcers Stomach pain Due to crohn's ulcers Due to crohn's Stomach pain Infliximab JOINT SWELLING,Other Reaction,Shortness Of Breath,Swelling High 02/03/2013 Other reaction(s): Adverse reaction, Other (see comments) Joints flared up Flare up of joints/ was hospitalized for 1 week as a result Joints swelled up. Hospitalized Joints flared up Joints swelled up. Hospitalized Flare up of joints/ was hospitalized for 1 week as a result Medications iron polysaccharide complex (FERREX 150 PO) Active cyanocobalamin 1,[address] 1 tablet under the tongue daily for B12 deficiency. 90 tablet 2 2 Active dicyclomine (BENTYL) 20 mg tablet Take 1 tablet by mouth 2 times daily for Irritable Bowel Syndrome. 360 tablet 4 Active LIALDA 1.2 gram EC tablet Take 4 tablets by mouth daily for Crohn's disease. 360 tablet 4 Active Active Problems Problem Noted Date Diagnosed Date Osteopenia 12/24/2023 Tinnitus of both ears 03/05/2021 Small fiber neuropathy 03/05/2021 Paresthesias 10/04/2020 Malaise and fatigue 07/27/2020 Overview (12/24/2023): Coupled with flares of low-grade fever, nausea and neurologic symptoms including paresthesias as well as tinnitus. Initial workup in consideration for clear infectious etiologies has not clearly established an infectious cause. The patient is profoundly concerned about underlying neuro inflammation and whether untreated inflammation of the central nervous system could cause lasting damage. His underlying autoimmune inflammatory bowel condition is not showing his typical flare symptoms of diarrhea and hematochezia and he has been off Humira long enough to discount that medication as an active cause of the symptoms. His lab work thus far is all within normal limits with prior negative blood cultures, a normal CBC, normal thyroid and cortisol studies, a normal CMP and normal sed rate and C-reactive protein. He is scheduled this coming week to obtain an MRI of his brain with and without gadolinium. This may help guide us if there are not any abnormalities found. If not did discuss the possibility of obtaining a lumbar puncture and spinal fluid to investigate if there is any cellular evidence of inflammation. Will ask for the patient to obtain a CT scan of his face and sinuses given his complaint about feeling of fullness in this area. It is possible that the higher dose of Humira that he was on at the end of last year may have allowed for fungal sinusitis to develop without clear diagnosis. Will investigate by blood work some resting levels of immunoglobulins as well as complement to see if there is obvious derangement here. Discussed the possibility of referring him to Allergy and immunology for a look from that viewpoint. Did agree that a referral to [facility] is reasonable given the lack of findings or unifying diagnosis to this point. We will start that process. Did suggest that he delay his planned COVID vaccination given the concern about immune stimulation and inflammation. He is in agreement at this point. Lentigines 05/16/2014 Multiple benign nevi 05/16/2014 Pruritus ani 05/16/2014 History of dysplastic nevus 11/12/2013 Atypical nevi 09/19/2013 Hypertension 03/28/2013 Crohn's colitis 03/21/2000 Encounters Date Type Department Care Team Description 05/26/2024 Telephone [facility] [address] [facility] [place] [address] Gilson Sandy MD Medication Refill 05/17/2024 Refill [facility] [address] [facility] [place] [address] Gilson Sandy MD Crohn's disease of colon without complication (HC CODE) from Last 3 Months Immunizations Immunization Administration Dates Next Due Influenza, injectable, MDCK, preservative free, quadrivalent (6 mo+) 05/09/2022 Influenza, injectable, quadrivalent (6 mo+) 02/2021 Influenza, seasonal, injectable (6 mos+) 013 PFIZER, SARS-COV2 (COVID-19) VACCINE 08/27/2021, 01/30/2021,12/28/2020 PFIZER, SARS-COV2 (COVID-19) VACCINE, BIVALENT 05/09/2022 PFIZER, SARS-COV2 (COVID-19) , MRNA, SPIKE PROTEIN VACCINE 04/20/2023 TST-PPD intradermal 08/27/2013 pneumococcal polysaccharide PPV23 12/09/2014 Family History Medical History Relation Comments Cancer Maternal Grandmother colon cance r at age 90 Colorectal Cancer Maternal Grandmother Stroke Maternal Grandmother Cancer Maternal Uncle melanoma Melanoma Maternal Uncle Kidney disease Paternal Aunt Stroke Paternal Grandmother Kidney disease Paternal Uncle Irritable bowel syndrome Sister Relation Status Comments Maternal Grandmother Maternal Uncle Paternal Aunt Paternal Grandmother Paternal Uncle Sister Social History Tobacco Use Types Packs/Day Years Used Date Smoking Tobacco: Never Smokeless Tobacco: Never Tobacco Cessation:Counseling Given: Not Answered Alcohol Use Standard Drinks/Week Comments Yes 4 (1 standard drink = 0.6 oz pure alcohol) I make cocktails and drink beer PHQ-2 Answer Date Recorded PHQ-2 SCORE 0 02/17/2024 Sex and Gender Information Value Date Recorded Sex Assigned at Male 12/17/2020 12:19 AM MDT Legal Sex Male 9:15 AM [facility] Gender Identity Male 12/17/2020 12:19 AM MDT Sexual Orientation Straight 12/17/2020 12 :19 AM MDT 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 file Not on file Not on file Last Filed Vital Signs Vital Sign Reading Time Taken Comments Blood Pressure 119/84 02/17/2024 7:18 PM MDT Pulse 69 02/17/2024 7:18 PM MDT Temperature 36.6 ??C (97.8 ??F) 02/17/2024 7:18 PM MD T Respiratory Rate 16 02/17/2024 7:18 PM MDT Oxygen Saturation 96% 02/17/2024 7:18 PM MDT Inhaled Oxygen Concentration - - Weight 79.4 kg (175 lb) 02/17/2024 7:18 PM MDT Height 175.3 cm (5' 9 ) 02/17/2024 7:18 PM MDT Body Mass Index 25.84 02/17/2024 7:18 PM MDT Plan of Treatment Health Maintenance Due Date Last Done Comments CT Colonography 1989 Flexible Sigmoidoscopy 1989 Lipids 1989 Stool DNA Test (Cologuard) 1989 Stool Occult Blood Test (FIT) 1989 Syphilis Screening 1989 Hepatitis C Antibody Screening 2007 Medical Durable Power of [facility] ([employer]) 2007 Hepatitis B Vaccine Adult (1 of 3 - 19+ 3-dose series) 2008 Influenza Vaccine (#1) 2024 , 05/28/2021, 03/19/2013 SARS-COV2 (COVID-19) Vaccine (2023- season) 2024 04/20/2023, 05/09/2022, 08/27/2021, Additional history exists Diabetes Screening 06/11/2024 06/11/2023, 1 07/30/2022, 05/08/2023, Additional history exists Colonoscopy 06/09/2025 06/09/2023, 12/31/2016 Colorectal Cancer Screening 06/09/2025 Tdap/Td Vaccine (2 - Td or Tdap) 11/08/2033 11/09/19 24 Recommended HIV Screening (A ges 15-65/One-time) Completed 02/27/2021 Procedures Procedure Name Priority Date/Time Associated Diagnosis Comments BASIC METABOLIC PANEL Routine 06/11/2023 11:14 AM [facility] CHRISTIANE (acute kidney injury) (HC CODE) CKD (chronic kidney disease) stage 2, GFR 60-89 ml/min GI COLONOSCOPY DIAGNOSTIC Routine 06/09/2023 10:50 AM [facility] Crohn's disease of colon without complication (HC CODE) HIV1/2 ANTIBODY/ANTIGEN SCREEN Routine 02/27/2021 9:41 AM MDT Small fiber neuropathy from Last 3 Months or Most Recently Relevant to Health Maintenance Results * Basic Metabolic Panel (06/11/2023 11:14 AM [facility]) Sodium Serum/Plasma 140 134 - 145 mmol/L 06/11/2023 2:34 PM [facility] Potassium Serum/Plasma 4.0 3.5 - 5.1 mmol/L 06/11/2023 2:34 PM [facility] Chloride Serum/Plasma 104 98 - 109 mmol/L 06/11/2023 2:34 PM [facility] Carbon Dioxide 26 22 - 30 mmol/L 06/11/2023 2:34 PM [facility] Anion Gap 10 4 - 15 mmol/L 06/11/2023 2:34 PM [facility] Glucose Serum/Plasma 92 70 - 99 mg/dL 06/11/2023 2:34 PM [facility] Blood Urea Nitrogen 17 9 - 20 mg/dL 06/11/2023 2:34 PM [facility] Creatinine Serum/Plasma 1.23 0.66 - 1.25 mg/dL 06/11/2023 2:34 PM [facility] Estimated GFR 79 >=60 mL/min/1.7 3 square meters 06/11/2023 2:34 PM [facility] Comment:The 2020 CKD-EPI cre atinine equation (IDMS-traceable) was used to approximate GFR. It's often unreliable when one is acutely ill or . This estimate assumes a regular diet and an average physique. Because estimated GFR can differ by more than 30% from measured GFR, consider ordering cystatin C to further assess kidney function or stage CKD if necessary. Calcium Serum/Plasma 9.0 8.4 - 10.2 mg/dL 06/11/2023 2:34 PM [facility] Blood BLOOD SPECIMEN / Unknown Venipuncture / Unknown 06/11/2023 11:14 AM [facility] 06/11/2023 11:14 AM [facility] us Tracey Blank DO LAB BLOOD ORDERABLES Final Result [facility] [address] [place] [address] * Colonoscopy - Diagnostic (06/09/2023 10:50 AM [facility]) 06/09/2023 9:37 AM [facility] Narrative [facility] - 06/09/2023 9:37 AM [facility] Name: Reuben Dumont ? Procedure Date: 06/09/2023 ? Date of : 1990 Age: 32 ?Gender: Male Note Status: Finalized ? Attending MD: Gilson Sandy MD, Room: Endo Room 1 ?Instrument Name: [id number] - [id number] Procedure: ? Colonoscopy Indications: ? High risk colon cancer surveillance: Crohn's ? colitis of 8 (or more) years duration with ? one-third (or more) of the colon involved. In ? clinical remission on Lialda 4.8g/d monotherapy Providers: ? Gilson Sandy MD, Ele Wilkins, Viviana Weathers, ? RN (Assisting Nurse) Referring MD: ? Medicines: ? Monitored Anesthesia Care Complications: ? No immediate complications. Estimated Blood Loss: ? Estimated blood loss was minimal. Procedure: ? After I obtained informed consent, the scope was ? passed under direct vision. Throughout the ? procedure, the patient's blood pressure, pulse, ? and oxygen saturations were monitored ? continuously. The High Definition Pediatric ? Colonoscope was introduced through the anus and ? advanced to the terminal ileum, with ? identification of the appendiceal orifice and IC ? valve. The colonoscopy was performed without ? difficulty. The patient tolerated the procedure ? well. The quality of the bowel preparation was ? good. ? Findings: ?The perianal and digital rectal examinations were ? normal. ? The entire colon was examined using HD-WLE and ? NBI (virtual chromoendoscopy) ? The area from splenic flexure to cecum appeared ? normal. ? Diffuse mucosal scarring, decreased vascularity, ? and pseudopolypos was found in the rectum, in the ? sigmoid colon and in the descending colon. No ? evidence of active inflammation. ? Biopsies were taken with a cold forceps in the ? entire colon for histology. Estimated blood loss ? was minimal. ? Non-bleeding internal hemorrhoids were found ? during retroflexion. ? The terminal ileum appeared normal. ? Impression: ?- Endoscopic remission with no evidence of active ? inflammation. ? - The splenic flexure to cecum is normal. ? - Decreased vascularity, mucosal scarring, and ? pseudopolyps in the rectum, in the sigmoid colon ? and in the descending colon. ? - Non-bleeding internal hemorrhoids. ? - The examined portion of the ileum was normal. ? - Biopsies were taken with a cold forceps for ? histology in the entire colon. Recommendation: ?- Await pathology results. ? - Continue Lialda 4.8g daily. ? - Repeat colonoscopy in 2 years for surveillance ? based on pathology results. ? Gilson Sandy MD 06/09/2023 11:01:21 AM This document has been signed electronically. Number of Addenda: 0 Note Initiated On: 06/09/2023 9:37 AM Procedure Note Gilson Sandy MD - 06/09/2023 [facility] Patient Name: Reuben Dumont Procedure Date: 06/09/2023 Date of : 1990 Age: 32 Gender: Male Note Status: Finalized Attending MD: Gilson Sandy MD, Room: Endo Room 1 Instrument Name: [id number] -[id number] Procedure: Colonoscopy Indications: High risk colon cancer surveillance: Crohn's colitis of 8 (or more) years duration with one-third (or more) of the colon involved. In clinical remission on Lialda 4.8g/d monotherapy Providers: Gilson Sandy MD, Ele Wilkins, Viviana Weathers, RN (Assisting Nurse) Referring MD: Medicines: Monitored Anesthesia Care Complications: No immediate complications. Estimated Blood Loss: Estimated blood loss was minimal. Procedure: After I obtained informed consent, the scope was passed under direct vision. Throughout the procedure, the patient's blood pressure, pulse, and oxygen saturations were monitored continuously. The High Definition Pediatric Colonoscope was introduced through the anus and advanced to the terminal ileum, with identification of the appendiceal orifice and IC valve. The colonoscopy was performed without difficulty. The patient tolerated the procedure well. The quality of the bowel preparation was good. Findings: The perianal and digital rectal examinations were normal. The entire colon was examined using HD-WLE and NBI (virtual chromoendoscopy) The area from splenic flexure to cecum appeared normal. Diffuse mucosal scarring, decreased vascularity, and pseudopolypos was found in the rectum, in the sigmoid colon and in the descending colon. No evidence of active inflammation. Biopsies were taken with a cold forceps in the entire colon for histology. Estimated blood loss was minimal. Non-bleeding internal hemorrhoids were found during retroflexion. The terminal ileum appeared normal. Impression: - Endoscopic remission with no evidence of active inflammation. - The splenic flexure to cecum is normal. - Decreased vascularity, mucosal scarring, and pseudopolyps in the rectum, in the sigmoid colon and in the descending colon. - Non-bleeding internal hemorrhoids. - The examined portion of the ileum was normal. - Biopsies were taken with a cold forceps for histology in the entire colon. Recommendation: - Await pathology results. - Continue Lialda 4.8g daily. - Repeat colonoscopy in 2 years for surveillance based on pathology results. Gilson Sandy MD 06/09/2023 11:01:21 AM This document has been signed electronically. Number of Addenda: 0 Note Initiated On: 06/09/2023 9:37 AM us Gilson Sandy MD IMG GI ORDERABLES Fin al Result [facility] * HIV 1/2 Antibody/Antigen Screen (02/27/2021 9:41 AM [facility]) HIV1/2 Antibody/Antig en Screen Nonreactive Nonreactive 02/27/2021 2:10 PM MDT [place] Comment:Testing performed us ing the [employer] Centaur HIV Ag/Ab Combo Immunoassay. HIV-1 antigen and HIV-1/HIV-2 antibodies were not detected; there is no laboratory evidence of HIV infection. If recent HIV exposure is suspected, order and collect a new sample for HIV by PCR (viral load) and/or repeat HIV 1/2 Antibody/Antigen screening in 4-6 weeks. Blood BLOOD SPECIMEN / Unknown Venipuncture / Unknown 02/27/2021 9:41 AM MDT 02/27/2021 9:41 AM MDT Thea Almanzar MD LAB BLOOD [place] [address] [place] [address], [facility] [phone] from Last 3 Months or Most Recently Relevant to Health Maintenance Insurance MEDICAID [place] [facility] Advance Directives * Full Code (Latest Code Status on File) Date Activated Date Inactivated Comments 11/04/2023 8:59 AM 11/04/2023 2:01 PM Healthcare Agents on File Name Relationship Healthcare Agent [facility] Hari Brenner Significant other Medical Decision Make r Care Teams Director Client Relationship Specialty Start Date End Date Asked, Do Not Notify PCP - General Internal Medicine 02/17/24 [place] [address] [place] [address] [place] [address] Consulting Physician Nephrology 12/23/23 [place] [address] [place] [address] Consulting Physician Urology 12/23/23
--- OUTSIDE RECORDS SUMMARY | 2024-08-17 06:35 | XMS_ITS | Encounter Summary ---
Author Organization [facility] Address [address] [place] [address] Care Team Providers Care Beautician Apprentice Name Role Phone Constanza Alarcon NP Primary Care Provider [phone] Tracey Blank DO Unavailable Chago Romo MD Unavailable Asked, Do Not Notify Primary Care Provider Unava ilable Reason for Visit * Reason Comments Review Results MRI/MRA Treatment Plan new provider Encounter Details Date Type Department Care Team (Late st Contact Info) Description 01/15/2021 Nurse Triage [facility] - [address] [address] Freddie Tolliver MD Review Results MRI/MRA; Treatment Plan (new provider) Social History Tobacco Use Types Packs/Day Years Used Date Smoking Tobacco: Never Smokeless Tobacco: Never Alcohol Use Standard Drinks/Week Comments Not Currently 0 (1 standard drink = 0.6 oz pur e alcohol) occasional PHQ-2 Answer Date Recorded PHQ-2 SCORE 0 12/25/2020 Sex and Gender Information Value Date Recorded Sex Assigned at Male 12/17/2020 12:19 AM MDT Legal Sex Male 9:15 AM [facility] Gender Identity Male 12/17/2020 12:19 AM MDT Sexual Orientation Straight 12/17/2020 12 :19 AM MDT COVID-19 Exposure Response Date Recorded In the last month, have you been in contact with someone who was confirmed or suspected to have Coronavirus / COVID-19? No / Unsure 01/17/2021 9:51 PM MDT documented as of this encounter Progress Notes * Olga Doyle - 01/26/2021 11:29 AM MDT Routed to provider. Secure chat message also sent to provider. * Traci Cook - 01/26/2021 11:24 AM MDT Caller/Relationship to patient: Reuben Dumont Reason for Call: Patient is calling today to leave a message for Dr. Freddie Tolliver MD to return hiscall to give the patient results of MRI. Best number for callback: [phone] (home) Is call back needed? yes Best time to reach caller: anytime Ok to leave detailed message on voicemail: yes Prefer message via MHC? No * Jody Mae - 01/15/2021 9:05 AM MDT Clinic/Provider: Freddie Tolliver Caller/Relationship to patient: chyna Russell Reason for Call: Pt had 12/25/[address] Tolliver- he is confused as he was told the provider was an ID neurologist - he needs to discuss labs, MRI/CT lumbar cervical, Brain MRI results- he is concerned that he would have this appt with Dr. Tolliver to establish care when the provider will no longer be in clinic. Best number for callback: [phone] (home) Is call back needed? yes Best time to reach caller: any Ok to leave detailed message on voicemail: yes Prefer message via MHC? documented in this encounter Plan of Treatment Not on file documented as of this encounter Visit Diagnoses Not on filedocumented in this encounter Additional Health Concerns Infection Onset Date Last Indicated Resolved Time R/O COVID-19 01/16/2023 01/16/2023 01/16/2023 1:27 PM MDT R/O COVID-19 03/02/2023 03/02/2023 03/02/2023 9:51 AM MDT Assessment Noted Time PHQ-2 Depression Total Score: 0 12/26/19 3:14 PM MDT documented as of this encounter Care Teams Beautician Apprentice Relationship Specialty Start Date End Date Constanza Alarcon NP [address] [place] [address] PCP - General Nurse Practitioner 08/21/20 02/16/24 Asked, Do Not Notify PCP - General Internal Medicine 02/17/24 [place] [address] [place] [address] [place] [id number] Consulting Physician Nephrology 12/23/23 [place] [address] [place] [address] [place] [address] Consulting Physician Urology 12/23/23 documented as of this encounter
--- OUTSIDE RECORDS SUMMARY | 2024-08-17 06:35 | XMS_ITS | Data Portability ---
Author Organization [place] - [facility], [facility] Address [address] [place] [address] [place] [address] Assessment Encounter Date Assessment Date Assessment LastModified by Organization Details LastModified Time 07/26/2021 07/26/2021 Preceding complaints: snoring, nocturnal gasping, fragmented and nonrestorative sleep and daytime sleepiness. Established Diagnoses: -Mild obstructive sleep apnea: not currently treated -Chronic nasal congestion: improved with consistent use of Nasacort -Chronic insomnia: well treated with intermittent use of melatonin Management Recommendations. We again reviewed the patient's prior HST, which showed mild ALMA We again discussed treatment options moving forward. Treatment options discussed included positional therapy alone, nPAP therapy or oral appliance likely to be combined with positional therapy. I explained that this level of sleep apnea does not warrant surgical intervention. Recommended continued use of Nasacort daily as directed for improved nasal breathing Consider trial of nose cones or Bongo while sleeping to improve breathing Encouraged patient to avoid sleeping supine Discussed how to use chronotherapy to improve sleep and wakefulness Encouraged patient to maintain a consistent sleep schedule Encouraged daily exercise and maintaining a consistent daily routine for improved sleep Follow up: prn Total time spent on the day of visit including pre-rounding, time with patient, coordinating care, and charting was: 30 minutes . bakari Not available 07/26/2021 16:30:10 11/21/2021 11/21/2021 Established Diagnoses: -Mild obstructive sleep apnea: not currently treated -Chronic nasal congestion -Chronic insomnia: treated with intermittent use of melatonin Management Recommendations. We again reviewed the patient's prior HST, which showed mild ALMA We again discussed treatment options moving forward. Treatment options discussed included positional therapy alone, nPAP therapy or oral appliance likely to be combined with positional therapy. I explained that this level of sleep apnea does not warrant surgical intervention. The patient elected to try PAP therapy. A rx for CPAP was provided and we discussed how this therapy works to treat sleep disordered breathing. Encouraged patient to avoid sleeping supine Discussed how to use chronotherapy to improve sleep and wakefulness Encouraged patient to maintain a consistent sleep schedule Encouraged daily exercise and maintaining a consistent daily routine for improved sleep Follow up: after obtaining a CPAP Total time spent on the day of visit including pre-rounding, time with patient, coordinating care, and charting was: 30 minutes . bakari Not available 11/21/2021 13:27:46 12/28/2021 12/28/2021 Assessment: Very pleasant patient scheduled in-office for Supply Switch Auto-PAP 5-12. However, he has never used therapy and brings in a machine that his friend gave him to be set up. # [id number] DN# [id number](he states this belonged to a patient of [facility]). HSAT results show AHI 5.2 and Low SpO2 85%. Patient's symptoms include EDS, snoring, low oxygen saturation , insomnia , witnessed apnea , nocturnal gasping , unrefreshing sleep and bruxism. He primarily breathes through his mouth during the day. He experiences seasonal allergies leading to nasal congestion. We discussed travel with equipment and wireless access. Patient was fit for the N20, F20, P10 and N30i masks. His mask of choice is the N20 mask with Large cushion. He has this mask but does need the Large cushion ordered. A prior auth is required per [employer]. I reviewed care, resupply, compliance, registration of equipment with [employer] and I informational booklet in detail. I recommended that patient sit with PAP on while watching television or reading to help acclimate to pressure. Patient will follow-up as needed and call/text before if needed. Compliance visit pending. Equipment added to [employer](reassigned to Reuben). Instructions on the proper use and care of the device as well as how to fit the mask were provided and the patient acknowledged that their questions had been answered. -Based on sleep study results and mask fitting session patient is a good candidate for Auto-PAP. -Based on sleep study results and mask fitting session patient may also be a candidate for oral appliance therapy. Plan: -Initiate Auto-PAP at 5-12 cm H2O with a Nasal mask. -Follow up as needed for data download to assess compliance and efficacy of device as well as mask fit. -Recommend follow-up with the referring physician for PAP [id number] clinical re-evaluation prior to the 91st day from initiation of therapy. Not available 12/28/2021 11:28:32 02/01/2022 02/01/2022 Established Diagnoses: -Mild obstructive sleep apnea: recently purchased a CPAP but hasn't been able to use it -Chronic nasal congestion -Chronic insomnia: treated with intermittent use of melatonin Management Recommendations. We spent considerable time today discussing ways to improve PAP comfort. I recommended trial of aCPAP at 5-7 cm H20 and EPR set at 2. Reviewed how changing the pressure settings can improve comfort and better treat apneas. Discussed other potential mask options and recommended that he consider trial of a medium F20 mask instead of current large N20. We also discussed potential use of a chin strap or mouth tape with nasal masks. I showed the patient CPAP bed pillows and hose management systems that he could utilize to improve PAP comfort. We discussed desensitization techniques to work on acclimating to therapy. Encouraged patient to maintain a consistent sleep schedule Encouraged daily exercise and maintaining a consistent daily routine for improved sleep Follow up: prn per patient preference for now. His insurance will be changing at the end of the month. He will utilize the portal in the meantime for ongoing guidance with therapy Total time spent on the day of visit including pre-rounding, time with patient, coordinating care, and charting was: 40 minutes . bakari Not available 02/01/2022 14:10:55 04/10/2022 04/10/2022 Established Diagnoses: -Mild obstructive sleep apnea: recently purchased a CPAP but hasn't been able to use it -Chronic nasal congestion: turbinectomy recommended but patient declined. Nasacort caused a rash -Chronic insomnia: treated with intermittent use of melatonin Management Recommendations. Recommended trial of CPAP at 6 cm H20, EPR set at 0. Reviewed how to increase temperature and humidity for comfort. Discussed how to use desensitization techniques. Consider CPAP titration study if still unable to use PAP therapy Consider trial of nose cones under PAP mask to improve nasal breathing Encouraged f/u with ENT - recommended consultation with Dr. Sage Briggs. Consider trial of childrens Flonase Sensimist daily as directed to see if this improves nasal breathing without causing a rash Consider myofunctional therapy for treatment of mild sleep apnea Encouraged patient to maintain a consistent sleep schedule Encouraged daily exercise and maintaining a consistent daily routine for improved sleep Follow up: prn per patient preference Total time spent on the day of visit including pre-rounding, time with patient, coordinating care, and charting was: 45 minutes . bakari Not available 04/10/2022 10:51:23 Plan of Treatment Reminders Order Date Submit Date Provider Last Modified By Organization Details Last Modified Time Details Appointments None record ed. Lab None record ed. Referral None record ed. Procedures None record ed. Surgeries None record ed. Imaging None record ed. Medication Orders None record ed. Patient TargetsNo targets recorded. Patient Instructions Encounter Date Encounter Id Patient Instructions Last Modified By Organization Details Last Modified Time 07/26/2021 [id number] sleep apnea: care instructions bakari Not available 07/26/2021 16:30:10 02/01/2022 [id number] sleep apnea: care instructions bakari Not available 02/01/2022 14:10:58 04/10/2022 [id number] sleep apnea: care instructions [email or web address] Not available 04/10/2022 10:51:28 Reason for Referral None Reported. Procedures Surgical History Date Name Laterality Status Provider Name and Address Organization Details Recorded Time 12/29/19 Diagnostic Sleep Study completed REA Vizcaino [address],[facility] [address], [place], [address], [facility] 12/28/2021 11:18:02 12/29/19 22 Mask Fitting Session completed REA Vizcaino [address],[facility] [address], [place], [address], [facility] 12/28/2021 11:18:41 No history of tonsillectomy completed BELÉN Santiago [address],[facility] [address], [place], [address], [facility] 03/22/2021 12:22:44 Imaging Results None recorded. Procedure Notes None recorded. Medical Equipment None Reported. Allergies No known drug allergies Medications Name Sig Start Date Stop Date Status Note LastModified by Organization Details LastModified Time prednisone 20 mg tablet 11/21 completed Not Available Not Available Not Available dicyclomine 20 mg tablet TAKE 1 TABLET BY MOUTH TWICE A DAY active Not Available Not Available No t Available tacrolimus 0.1 % topical ointment APPLY TWICE A DAY TO AFFECTED AREAS FOR UP TO 8 WEEKS. active Not Available Not Available No t Available dicyclomine 11/21 completed Not Available Not Available Not Available Lialda 1.2 gram tablet,iva yed release active Not Available Not Available Not Available Jublia 10 % topical solution with applicator active Not Available Not Available N ot Available Vitals Date Recorded Body height Provider Name an d Address Organization Details Last Updated DateTime 07/26/2021 175.26 cm BELÉN Santiago [address], [place], [address], [facility] 07/26/2021 16:04:14 Date Recorded Body height Body mass index (BMI) Body weight Provider Name and Address Organization Details Last Updated DateTime 11/21/2021 175.26 cm 24.4 kg/m2 39528.74 g BELÉN Santiago [address], [place], [address], [facility] 11/21/2021 13:06:12 Date Recorded Body height Provider Name an d Address Organization Details Last Updated DateTime 02/01/2022 175.26 cm BELÉN Santiago [address], [place], [address], [facility] 02/01/2022 10:02:15 Social History Question Answer Notes LastModified by Organizat ion Details LastModified Time Tobacco Smoking Status Never Smoker BELÉN Santiago [address], [place], [address], [facility] 03/22/2021 12:20:40 Consumes Alcohol Weekly Informat ion not available 03/22/2021 Caffeine Use None Information not available 03/22/2021 Children No Information no t available 03/22/2021 Bed Partner No Information n ot available 03/22/2021 Tobacco Use None Information n ot available 03/22/2021 Recreational Drugs None Information not available 03/22/2021 Bed Is Comfortable Yes Information not available 03/22/2021 Room Is Quiet Yes Information not available 03/22/2021 Room Temperature Hot No AC Informat ion not available 03/22/2021 What Is Your Relationship Status? Single Information not available 03/22/2021 Sex: Unknown Functional Status None recorded. Mental Status None recorded. Family History Relationship Description Onset Age of this Age Resolved Age Notes LastModified by Organization Details LastModified Time Father Sleep disorder snore [email or web address] Not available 03/22 12:52:34 Mother Sleep disorder snore klindquist Not available 03/22 12:52:34 Maternal Grandmother Sleep disorder RLS klindquist Not available 03/22 12:52:34 Medical History Condition Response Anxiety Disorder N Diabetes N Thyroid Disease N Renal Disease N Myocardial Infarction N Psychiatric hospitalization N Cancer N Stroke N Depression N Asthma N Allergies N Congestive Heart Disease N Peripheral vascular disease N Arrhythmias N Cardiovascular Disease N Seizures N PTSD N GERD N Hypertension N Past Encounters Encounter ID Performer Location Encounter Start Date Encounter Closed Date Diagnosis/Indication Diagnosis SNOMED-CT Code Diagnosis ICD10 Code Diagnosis Note [id number] BEL[facility]N [facility] [address] [place] [phone] 03/22/2021 11:55:08 03/22/2021 13:06:15 Obstructive sleep apnea syndrome 28297166 G47.33 [id number] BEL[facility]N [facility] [address] [place] [address] [place] [address] 04/27/2021 13:56:08 04/27/2021 15:23:36 Obstructive sleep apnea syndrome 75316435 G47.33 [id number] BELÉN [facility] [address] [place] [address] [place] [address] 07/26/2021 15:57:19 07/26/2021 16:30:50 Obstructive sleep apnea syndrome 38026599 G47.33 [id number] BELÉN Santiago [facility] [address] [place] [address] [place] [address] 11/21/2021 12:59:30 11/21/2021 13:29:23 Obstructive sleep apnea syndrome 39204165 G47.33 [id number] Aneesh Riojas [facility] [address] [place] [address] [place] [address] 12/28/2021 10:28:49 12/28/2021 11:28:40 [id number] BELÉN Santiago [facility] [address] [place] [address] 02/01/2022 10:00:24 02/01/2022 14:11:29 Obstructive sleep apnea syndrome 40723888 G47.33 [id number] BELÉN Santiago [facility] [address] [place] [address], [place] [address] 04/10/2022 10:00:50 04/10/2022 10:52:29 Obstructive sleep apnea syndrome 65130160 G47.33 Health Concerns Section Related Observation LastModified by Organization Detai ls LastModified Time None Recorded Concern Status LastModified by Organization Details LastModified Time None Recorded Advance Directives Directive None Recorded Payers Encounter Date Sequence Insurance Name Policy Number Policy [place] Covered Member ID [place] Member ID Guarantor Name 07/26/2021 1 [place] [id number] 1 Reuben Dumont [id number] Reuben Dumont 11/21/2021 1 [place] [id number] 1 Reuben Dumont [id number] Reuben Dumont 12/28/2021 1 [place] [id number] 1 Reuben Dumont [id number] Reuben Dumont 02/01/2022 1 [place] [id number] 1 Reuben Dumont [id number] Reuben Dumont 04/10/2022 1 [place] [facility] Reuben Dumont [id number] Reuben Dumont Notes Date Note Type Note Provider Name and Address Organization Details Recorded Time 07/26/2021 text/html Mr. Dumont is a 31 y/o man with a history of snoring, nocturnal gasping, fragmented and nonrestorative sleep and daytime sleepiness. He has a history of Crohn's disease and small fiber peripheral neuropathy. Crohns is well controlled. He continues to take a polyiron supplement daily. HST 04/13/21 with AHI of 5.2/hr. SpO2 average of 91% and tiffany of 85%. He has been using Nasacort daily - which has improved his nasal breathing considerably. Met with ENT, who suggested that turbinectomy may be helpful. Recently was diagnosed with COVID. Sleep Routine:Use of hypnotics/Sleep Medications: occasionally takes low dose melatonin if he thinks his sleep schedule is starting to driftTV/phone/tablet in bed: screens at bedtime Bedtime: around midnightSleep Latency: variesNight time awakenings: x 1Time to fall back to sleep: variesWake Time: around 7 AMEstimated TST (hours): 7 Daytime naps: occasionally in the afternoon when experiencing waves of fatigue - not always refreshing Bruxism: Y, not wearing a MG currently --- experiences TMJ dysfunction, jaw popping and tinnitus RLS symptoms: Yes, rare, family history --- recently diagnosed with neuropathyHistory of crohn's disease and taking a daily iron supplement BELÉN Santiago [address] [facility],[address], [place], [address], [facility] 07/26/2021 16:30:22 11/21/2021 text/html Mr. Dumont is a 31 y/o man with a history of mild snoring, nocturnal gasping/choking events, breathing pauses while sleeping, fragmented and non-restorative sleep and daytime sleepiness. He has a history of Crohn's disease and small fiber peripheral neuropathy. Crohns is well controlled. He continues to take a polyiron supplement daily. HST 04/13/21 with AHI of 5.2/hr. SpO2 average of 91% and tiffany of 85%. Met with an ENT, who suggested that turbinectomy may be helpful. He decided not to follow through with the recommendation. The patient returns today reporting that his sleep apnea seems to have worsened and he would like to treat it. His bed partner has noticed that he is having more and longer breathing pauses while sleeping. The patient has noticed that he is waking up during the night more often feeling like he can't breathe. He is feeling more anxious. He would like to consider trial of PAP therapy. Is concerned that an MAD would be too uncomfortable. Sleep Routine:Use of hypnotics/Sleep Medications: occasionally takes low dose melatonin if he thinks his sleep schedule is starting to driftTV/phone/tablet in bed: screens at bedtime Bedtime: around midnightSleep Latency: variesNight time awakenings: x 1Time to fall back to sleep: variesWake Time: around 7 AMEstimated TST (hours): 7 Daytime naps: occasionally in the afternoon when experiencing waves of fatigue - not always refreshing Bruxism: Y, not wearing a MG currently --- experiences TMJ dysfunction, jaw popping and tinnitus RLS symptoms: Yes, rare, family history --- he has a history of neuropathyHistory of crohn's disease and taking a daily iron supplement BELÉN Santiago [address], [place], [address], [facility] 11/21/2021 13:28:57 12/28/2021 text/html Scheduled for yost pply switch. Is actually set up of his own machine. Aneesh Riojas [facility] [address], [place], [address], [facility] 12/28/2021 11:28:35 02/01/2022 text/html Mr. Dumont is a 31 y/o man with a history of mild snoring, nocturnal gasping/choking events, breathing pauses while sleeping, fragmented and non-restorative sleep and daytime sleepiness. He has a history of Crohn's disease and small fiber peripheral neuropathy. Crohns is well controlled. He continues to take a polyiron supplement daily. HST 04/13/21 with AHI of 5.2/hr. SpO2 average of 91% and tiffany of 85%. The patient met with an ENT, who suggested that turbinectomy may be helpful. He decided not to follow through with the recommendation. The patient elected to try PAP therapy recently and purchased a ResMed S10 auto-titrating CPAP in December. He now returns for f/u on the above. CPAP pressure settings currently 5-12 cm H20, EPR set at 3Mask: N20, size large He has only been able to use the CPAP when awake. It is uncomfortable and he isn't able to fall asleep with it on. His mouth drops open when sleeping and he things he would feel more comfortable with a oronasal mask. Denies aerophagia, air hunger and pressure intolerance when using therapy while awake Sleep Routine:Use of hypnotics/Sleep Medications: occasionally takes low dose melatonin if he thinks his sleep schedule is starting to driftTV/phone/tablet in bed: screens at bedtime Bedtime: around midnightSleep Latency: variesNight time awakenings: x 1Time to fall back to sleep: variesWake Time: around 7 AMEstimated TST (hours): 7 Daytime naps: occasionally in the afternoon when experiencing waves of fatigue - not always refreshing Bruxism: Y, not wearing a MG currently --- experiences TMJ dysfunction, jaw popping and tinnitus RLS symptoms: Yes, rare, family history --- he has a history of neuropathyHistory of crohn's disease and taking a daily iron supplement BELÉN Santiago [address] [facility],[address], [place], [address], [facility] 02/01/2022 14:11:03 04/10/2022 text/html Mr. Dumont is a 31 y/o man with a history of mild snoring, one episode of nocturnal gasping/choking. breathing pauses while sleeping, fragmented and non-restorative sleep and fatigue He has a history of Crohn's disease and small fiber peripheral neuropathy. Crohns is well controlled. He continues to take a polyiron supplement daily. HST 04/13/21 with AHI of 5.2/hr. SpO2 average of 91% and tiffany of 85%. The patient met with an ENT, who suggested that turbinectomy may be helpful. He decided not to follow through with the recommendation. Trial of Nasacort caused a skin rash and he discontinued it The patient elected to try PAP therapy recently and purchased a ResMed S10 auto-titrating CPAP in December. He hasn't been able to tolerate it. CPAP pressure settings currently 7 cm H20, EPR set at 3Mask: N20, size large Denies aerophagia, air hunger and pressure intolerance when using therapy while awakeSkin feels itchy when wearing a mask. Reports that his nose sometimes parker after wearing the CPAP Sleep Routine: Use of hypnotics/Sleep Medications: occasionally takes low dose melatonin if he thinks his sleep schedule is starting to driftTV/phone/tablet in bed: screens at bedtime Bedtime: around midnightSleep Latency: variesNight time awakenings: x 1Time to fall back to sleep: variesWake Time: around 7 AMEstimated TST (hours): 7 Daytime naps: occasionally in the afternoon when experiencing waves of fatigue - not always refreshing Bruxism: Y, not wearing a MG currently --- experiences TMJ dysfunction, jaw popping and tinnitus RLS symptoms: Yes, rare, family history --- he has a history of neuropathyHistory of crohn's disease and taking a daily iron supplement BELÉN Santiago [address] [facility],[address], [place], [address], [place] [facility] 04/10/2022 10:51:31
--- OUTSIDE RECORDS SUMMARY | 2024-08-17 06:35 | XMS_ITS | Encounter Summary ---
Author Organization [place] [facility] Address [address] [place] [address] Care Team Providers Care Feather Renovator Name Role Phone Constanza Alarcon NP Primary Care Provider [phone] Tracey Blank DO Unavailable Chago Romo MD Unavailable Asked, Do Not Notify Primary Care Provider Unava ilable Reason for Visit * Reason Comments Medication Refill Encounter Details Date Type Department Care Team (Late st Contact Info) Description 01/26/2024 Refill [facility] [address] [facility] [place] [address] Gilson Sandy MD [address] Floor, Mail Stop [address] [place], [place] [phone] Crohn's disease of colon without complication (HC CODE) Social History Tobacco Use Types Packs/Day Years Used Date Smoking Tobacco: Never Smokeless Tobacco: Never Alcohol Use Standard Drinks/Week Comments Yes 4 (1 standard drink = 0.6 oz pure alcohol) I make cocktails and drink beer PHQ-2 Answer Date Recorded PHQ-2 SCORE 0 01/30/2024 Sex and Gender Information Value Date Recorded Sex Assigned at Male 12/17/2020 12:19 AM MDT Legal Sex Male 9:15 AM MST Gender Identity Male 12/17/2020 12:19 AM MDT Sexual Orientation Straight 12/17/2020 12 :19 AM MDT 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 file Not on file Not on file documented as of this encounter Plan of Treatment Not on file documented as of this encounter Visit Diagnoses Diagnosis Crohn's disease of colon without complication (HC CODE) documented in this encounter Additional Health Concerns Assessment Noted Time PHQ-2 Depression Total Score: 0 12/26/19 11:24 AM MDT documented as of this encounter Care Teams Feather Renovator Relationship Specialty Start Date End Date Constazna Alarcon NP [address] [place], [place] [phone] PCP - General Nurse Practitioner 08/21/20 02/16/24 Asked, Do Not Notify PCP - General Internal Medicine 02/17/24 [place] [address] [place] [address] [place] [address] Consulting Physician Nephrology 12/23/23 [place] [address] [place] [address] [place] [address] Consulting Physician Urology 12/23/23 documented as of this encounter
--- OUTSIDE RECORDS SUMMARY | 2024-08-17 06:35 | XMS_ITS | Encounter Summary ---
Author Organization [facility] Address [address] [place] [address] Phone Care Team Providers Care Telecommunication Systems Designer Name Role Phone Sebastien Leonard MD Primary Care Provider Encounter Details Date Type Department Care Team (Late st Contact Info) Description 08/10/2024 Documentation Only [facility] [address] [place] [address] Cheryl Jimenez HI [address] [place] [phone] Social History Tobacco Use Types Packs/Day Years Used Date Smoking Tobacco: Never Assessed Sex and Gender Information Value Date Recorded Sex Assigned at Not on file Legal Sex Male 10:14 AM EST Gender Identity Not on file Sexual Orientation Not on file documented as of this encounter Plan of Treatment Upcoming Encounters Date Type Department Care Team (Late st Contact Info) Description 10/20/2024 4:00 PM EDT Office Visit [facility] [address] [place] [phone] Jeff Madera MD [address] [place] [address] [place] [address] documented as of this encounter Visit Diagnoses Not on filedocumented in this encounter Care Teams Telecommunication Systems Designer Relationship Specialty Start Date End Date Sebastien Leonard MD [address] [place] [address] PCP - General Internal Medicine 08/10/24 documented as of this encounter
--- OUTSIDE RECORDS SUMMARY | 2024-08-17 06:35 | XMS_ITS | Referral Summary ---
Author Organization [facility] Address [facility] [address], [address] [place] [address] Care Team Providers Care Validation Manager Name Role Phone Constanza Alarcon NP Primary Care Provider [phone] Source Comments [facility] (Labor and Delivery) documents do not appear in the Encounter Summary [facility] Allergies Active Allergy Reactions Criticality Noted Date [...] 12/31/2016 2:55 PM MDT Plan of Treatment [place] [id number] Care Teams Validation Manager Relationship Specialty Start Date End Date Constanza Alarcon NP [address] [facility] [address] [place], [place] [id number] PCP - General 12/24/16
--- OUTSIDE RECORDS SUMMARY | 2024-08-17 06:35 | XMS_ITS | Encounter Summary ---
Author Organization [facility] Address [address] [place] [address] Care Team Providers Care Dock Superintendent Name Role Phone Constanza Alarcon NP Primary Care Provider [phone] Tracey Blank DO Unavailable Chago Romo MD Unavailable Asked, Do Not Notify Primary Care Provider Unava ilable Reason for Visit * Reason Onset Date Comments Medication Refill 01/26/2024 Encounter Details Date Type Department Care Team (Late st Contact Info) Description 01/26/2024 Refill [facility] [address] [facility] [place] [address] [place] [address] [place] [address] [address] 5th Floor, Mail Stop [address] [place], [place] [phone] Crohn's disease of colon without complication (HC [...] on file documented as of this encounter Progress Notes * Carolyne Daugherty RN - 01/27/2024 12:44 PM MDT Attention Clinic Staff/Provider - Please review and address as appropriate: Dicyclomine: The [facility] is unable to approve this request. Reason: Chart review indicating patient is communicating with clinic team re: [place] another [place] and refills for medications. Chart review also showing this was already sent to another pharmacy. Unclear why another request now. Defer to clinic to coordinate further with patient. Thank you, Carolyne Daugherty RN [facility] 01/27/2024 at 12:44 PM * Kezia Madera - 01/27/2024 12:30 PM MDT [facility] Documentation Attention [facility] Clinical Staff - Please review the following refill request(s): Dicyclomine: -retransmit? Thank you, Kezia Madera Medication Windows Systems Administrator (MAS) [facility] 01/27/2024 at 12:36 PM documented in this encounter Plan of Treatment Not on file documented as of this encounter Visit Diagnoses Diagnosis Crohn's disease of colon without complication (HC CODE) documented in this encounter Additional Health Concerns Assessment Noted Time PHQ-2 Depression Total Score: 0 12/26/19 24 11:24 AM MDT documented as of this encounter Care Teams Dock Superintendent Relationship Specialty Start Date End Date Constanza Alarcon NP [address] [place] [address] PCP - General Nurse Practitioner 08/21/20 02/16/24 Asked, Do Not Notify PCP - General Internal Medicine 02/17/24 [place] [address], [place] [address] [place] [address] Consulting Physician Nephrology 12/23/23 [place] [address] [place] [address] [place] [address] Consulting Physician Urology 12/23/23 documented as of this encounter
--- OUTSIDE RECORDS SUMMARY | 2024-08-17 06:35 | XMS_ITS | Clinical Summary ---
Author Organization [facility] Address [address] [place] [address] Care Team Providers Care Emergency Management System Director Name Role Phone Kristin Hunter MD Primary Care Provider [phone] Allergies Active Allergy Reactions Criticality Noted Date Comments Aspirin Adverse reaction,Other (see comments) High 10/28/2012 Stomach pain ulcers Due to crohn's Aspirin, Buffered GI bleeding 07/26/2019 Ibuprofen GI bleeding,Other (see comments),Adverse reaction High 10/28/2012 ulcers Stomach pain Due to crohn's Infliximab Shortness of breath,Other (see comments),Adverse reaction,Swelling High 02/03/2013 Joints flared up Flare up of joints/ was hospitalized for 1 week as a result Joints swelled up. Hospitalized Medications dicyclomine (BENTYL) 20 mg tablet Take by mouth 4 (four) times a day (before meals and nightly). Active adalimumab (HUMIRA) 40 mg/0.8 mL syringe kit Inject 40 mg under the skin every 14 (fourteen) days. Active ferrous fumarate/iron ps cplx (FERROUS FUMARATE-IRON PS CMPLX ORAL) Take 150 mg by mouth 2 (two) times a day. Active cholecalciferol (VITAMIN D-3) 25 mcg (1,000 unit) tablet Take 1,000 Units by mouth. Active Active Problems Problem Noted Date Diagnosed Date Tinnitus of both ears 10/04/2020 Paresthesias 10/04/2020 Malaise and fatigue 07/27/2020 Overview (11/10/2020): Coupled with flares of low-grade fever, nausea [...] viewpoint. Did agree that a referral to [facility] is reasonable given the lack of findings or unifying diagnosis to this point. We will start that process. Did suggest that he delay his planned COVID vaccination given the concern about immune stimulation and inflammation. He is in agreement at this point. Social History Tobacco Use Types Packs/Day Years Used Date Smoking Tobacco: Never Smokeless Tobacco: Never Sex and Gender Information Value Date Recorded Sex Assigned at Male 09/01/2020 2:57 PM MST Legal Sex Male 8:07 AM MDT Gender Identity Male 09/01/2020 2:57 PM MST Sexual Orientation Straight 09/01/2020 2: 57 PM [facility] Last Filed Vital Signs Vital Sign Reading Time Taken Comments Blood Pressure 104/66 11/15/2020 8:14 AM MDT Pulse 59 11/15/2020 8:14 AM MDT Temperature 36.3 ??C (97.4 ??F) 11/15/2020 8:14 AM T Respiratory Rate 12 11/10/2020 10:58 AM MDT Oxygen Saturation 99% 11/10/2020 10:58 AM MDT Inhaled Oxygen Concentration - - Weight 70.3 kg (155 lb) 11/13/2020 1:18 PM MDT Height 175.3 cm (5' 9 ) 07/31/2020 2:06 PM MST Body Mass Index 22.89 07/31/2020 2:06 PM MST Plan of Treatment Health Maintenance Due Date Last Done Comments DTaP,Tdap,and Td Vaccines (1 - Tdap) 2008 Hepatitis B Vaccines (1 of 3 - 19+ 3-dose series) 2008 Influenza Vaccine (#1) 2024 03/19/2013 COVID-19 Vaccine (1 - 2023-2 5 season) 2024 Pneumococcal Vaccine: Pediat rics (0 to 5 Years) and At-Risk Patients (6 to 64 Years) Aged Out 12/09/2014 No longer eligi ble based on patient's age to complete this topic HIB Vaccines Aged Out No longer eligi ble based on patient's age to complete this topic HPV Vaccines Aged Out No longer eligi ble based on patient's age to complete this topic Hepatitis A Vaccines Aged Out No long er eligible based on patient's age to complete this topic IPV Vaccines Aged Out No longer eligi ble based on patient's age to complete this topic Meningococcal Vaccine Aged Out No robbie ghazal eligible based on patient's age to complete this topic Insurance [employer] Care Teams Emergency Management System Director Relationship Specialty Start Date End Date Kristin Hunter MD [address] [place] [id number] PCP - General Field Producer 11/03/20
--- OUTSIDE RECORDS SUMMARY | 2024-08-17 06:35 | XMS_ITS | Clinical Summary ---
Author Organization [facility] Address [address] [place] [address] Phone Care Team Providers Care Core Shaper Sides Name Role Phone Sebastien Leonard MD Primary Care Provider Encounters Date Type Department Care Team Description 08/10/2024 Documentation Only [facility] [address] [place] [phone] Cheryl Jimenez MA from Last 3 Months Social History Tobacco Use Types Packs/Day Years Used Date Smoking Tobacco: Never Assessed Sex and Gender Information Value Date Recorded Sex Assigned at Not on file Legal Sex Male 10:14 AM EST Gender Identity Not on file Sexual Orientation Not on file Plan of Treatment Upcoming Encounters Date Type Department Care Team (Late st Contact Info) Description 10/20/2024 4:00 PM EDT Office Visit [facility] [address] [place] [phone] Jeff Madera MD [address] [place] [address] [place] [phone] Health Maintenance Due Date Last Done Comments Hepatitis B Vaccine (1 of 3 - 19+ 3-dose series) 2008 Pneumococcal Vaccine: Pediat rics (0 to 5 Years) and At-Risk Patients (6 to 64 Years) (2 of 2 - PCV) 12/10/2015 12/09/2014 Influenza Vaccine (#1) 2024 05/09/2022, 2020 Insurance [facility] Care Teams Core Shaper Sides Relationship Specialty Start Date End Date Sebastien Leonard MD [address] [place] [address] PCP - General Internal Medicine 08/10/24
== END 2024-08-17 06:32 | disposition home or self-care (01) ==
LOC: HO.UMASIMG 06:31
PROVIDERS: Visit Provider Internal Medicine
DX: D41.02 Neoplasm of uncertain behavior of left kidney (principal)
CPT/HCPCS: 76770

== ENCOUNTER → 2024-08-17 09:00 | Outpatient (BNV) | payer BC, SELFPAY | PROVIDERS: Visit Provider Radiology Diagnostic Radiology | DX: D49.512 Neoplasm of unspecified behavior of left kidney (principal) | CPT/HCPCS: 76770 ==